=== PATIENT | male | born 1930 | race Caucasian/White ===

== ENCOUNTER 2016-11-04 19:20 | Inpatient (IN) | payer MEDICARE ==
[~2016-11-04] VITALS: Ht 182.9 cm; Wt 90.3 kg
--- OUTSIDE RECORDS SUMMARY | 2016-11-04 19:25 | XMS REPORT | Summary of Care ---
Author Author Risa Hill M.D. Organization Unknown Address [address] [place] [address], [place] [id number] Phone Unavailable Care Team Providers Care Solderer Name Role Phone Risa Hill M.D. 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 Refills: 0 Risa Hill M.D. Started 02-Aug-2009 ActiveDiltiazem HCl ER 120 MG Oral Capsule Extended Release 12 Hour Take one capsule daily Refills: 0 Risa Hill M.D. Started ActiveFinasteride 5 MG Oral Tablet Take 1 tablet daily Quantity: 90 Refills: 3 Risa Hill M.D. Started ActiveEliquis 5 MG Oral Tablet Take twice daily Refills: 0 Started 21-Aug-2015 Active Allergies and Adverse Reactions Name Dates Details Penicillins Status: Active Past Medical History Name Dates Details History of skin cancer (V10.83, Z85.828) Status: Resolved Procedures Procedure Dates Details History of Total Knee Replacement Left History of Total Knee Replacement Right History of Coronary Angiography Without Concomitant Left Heart Catheterization Procedures not documented Immunization Name Dates Details Immunizations not documented Family History Unknown Family Member Name Dates Details No pertinent family history Comments: Unknown Status: Active Mother Name Dates Details No pertinent family history Status: Active Social History Name Dates Details Smoking StatusUnknown if ever smoked Vital Signs Date Test Result Details 21-Aug-2015 09:43 BP Systolic 142 mm[Hg] Status: BP Diastolic 84 mm[Hg] Status: Weight 207.4 lb Status: O2 SAT 95 % Status: Body Mass Index Calculated 29.34 kg/m2 Status: Body Surface Area Calculated 2.13 m2 Status: Results Date Description Value Details Results not documented Plan of Care Planned Observations Name Dates Details Planned Goals not documented Goal Planned Encounters Appointment; Provider: Mason Sorenson On 11:00 Appointment; Provider: Eliazar Santacruz On 24-Jul-2014 11:15 Instructions Instructions not documented Encounters Appointment; Risa Hill Encounter Diagnosis: Problem not documented On 21-Aug-2015 09:45 Appointment; Mason Sorenson Encounter Diagnosis: Problem not documented On 29-Mar-2015 10:00 Appointment; Mason Sorenson Encounter Diagnosis: Problem not documented On 19-Oct-2014 14:45 Appointment; Risa Hill Encounter Diagnosis: Problem not documented On 22-Aug-2014 09:45 Appointment; Mason Sorenson Encounter Diagnosis: Problem not documented On 06-Apr-2014 11:00 Appointment; Risa Hill Encounter Diagnosis: Problem not documented On 10:30 Appointment; Risa Hill Encounter Diagnosis: Problem not documented On 13:30 Appointment; Mason Sorenson Encounter Diagnosis: Problem not documented On 29-Sep-2013 11:00
[2016-11-04] MEDS ORDERED: NS IV 500 ML 500 ML IV SCH (19:40)
[2016-11-04] MEDS ORDERED: SODIUM CHLORIDE FLUSH 10 ML SYR IV PRN (19:40)
[2016-11-04] MEDS ORDERED: ACETAMINOPHEN 500 MG TAB (TYLENOL) PO ONE (19:40)
[2016-11-04 19:55] LABS: MEAN CORPUSCULAR HEMOGLOBIN 31.3 PG (26.0-34.0); MEAN CORPUSCULAR HGB CONC 34.6 g/dL (31.0-37.0); MEAN CORPUSCULAR VOLUME 91 FL (80-100); MEAN PLATELET VOLUME 10.5 FL (6.0-9.5); PLATELET COUNT 183 10^3uL (150-450); WHITE BLOOD COUNT 15.87 10^3uL (4.0-11.0)
[2016-11-04 20:11] LABS: ANION GAP 14.2 MEQ/L (3-15)
[2016-11-04 20:12] LABS: ALBUMIN 3.7 g/dL (3.4-5.0); CALCULATED IONIZED CALCIUM 3.9 mg/dL (3.8-4.6); TOTAL PROTEIN 6.7 g/dL (6.4-8.5)
[2016-11-04 20:17] LABS: BAND NEUTROPHILS % 16 % (0-6); EOSINOPHILS % 0 % (0-4); LYMPHOCYTES # 0.6 #; MONOCYTES # 0.9 #; MONOCYTES % 6 % (3-11); RBC MORPH NORMAL (NORMAL); SEGMENTED NEUTROPHILS % 74 % (51-67); TOTAL CELLS COUNTED 100
[2016-11-04 20:28] LABS: CLARITY,URINE Cloudy; GLUCOSE, URINE (UA) Negative (Negative); LEUKOCYTE ESTERASE ,URINE Negative (Negative); PH,URINE 5.5 (5.0 - 8.0); UROBILINOGEN,URINE 0.2 mg/dL (0.2-1.0)
[2016-11-04 20:47] LABS: BILIRUBIN,URINE 1+ (Negative); COLOR,URINE Dark Yellow
[2016-11-04 20:48] LABS: URINE CENTRIFUGED VOLUME 12 mL
--- NOTE | 2016-11-04 21:30 | NUR ---
Pt resting in bed. Awaiting blood results and x-ray results. Denies needs or c/o at this time.
[2016-11-04] MEDS ORDERED: MAG HYDROX/AL HYDROX/SIMETH 200-200-20/5 ML (MAG-AL PLUS) 30 ML UDC PO PRN (23:10)
[2016-11-04] MEDS ORDERED: ONDANSETRON 2 MG/ML (Z0FRAN) 2 ML VIAL IV PRN (23:10)
[2016-11-04] MEDS ORDERED: ACETAMINOPHEN 325 MG TAB (TYLENOL) PO PRN (23:10)
--- NOTE | 2016-11-04 23:45 | NUR ---
Pt. arrives via cart accompanied by DIMENSION MILL WORKER to the Med Surg floor; room 308. Pt. is alert & is cooperative with ambulating to weigh chair then to bed; full assist x 2 required as pt. is very weak. Pt. states, "Both knees started hurting yesterday". Yellow gown/socks applied. Pt.'s respirations are currently 28 per minute; audible wheezes noted. Pt. had small bowel movement with transfer from cart to weigh chair; pullups applied. Pt. denies discomfort. Admission process continues.
[2016-11-05] VITALS (11 sets, daily range): BP systolic 106–183; BP diastolic 61–90
--- NOTE | 2016-11-05 00:50 | NUR ---
Dr. Nelson unable to connect via Robo Doc; trouble shooting equipment; Digital Marketing Strategist, Jyoti, here to assist. Pt. is resting quietly; O2 at 2L via NC; respirations at 24 currently; no cough; lying on right side. Will continue to monitor.
--- NOTE | 2016-11-05 01:15 | NUR ---
NS infusing at 75 cc/hr without difficulty; pt. resting on right side; pillows placed for comfort. Call light and H2O within reach.
[2016-11-05] MEDS ORDERED: SODIUM CHLORIDE FLUSH 10 ML SYR IV PRN (01:20)
--- NOTE | 2016-11-05 01:55 | NUR ---
IT welding equipment sales representative remedied problem with Robo Doc: Dr. Johnson able to interview/assess pt.
[2016-11-05] MEDS ORDERED: DEXTROMETHORPHAN PO ONE (02:05)
[2016-11-05] MEDS ORDERED: GUAIFENESIN PO ONE (02:05)
--- NOTE | 2016-11-05 02:14 | History and Physical (E) ---
History & Physical PCP: John Black MD CC: Cough, weakness HPI: 86 yo gentleman who started feeling weak, congested, having hallucinations and having a dry cough with mild fevers of 99 degress for the past 2 days. He fell at home yesterday and was unable to stand due to his profound weakness. He states he had to crawl around most of the day today until he could call 911. PMH: A- fib, spinal stenosis, PSH: none ALLERGIES: Please see list at end of report. HOME MEDICATIONS: Please see list at end of report. FH: Noncontributory due to advanced age SH: chews tobacco X 60 years, no ETOH, lives alone in a house, ROS: all 10 systems were reviewed except what is listed in the HPI. OBJECTIVE GEN: Awake, alert, oriented, very hard of hearing CV: RRR S1 S2 normal with no murmur LUNGS: CTA B ABD: Soft, normal bowel sounds. INTEG: No rash. NEURO: No focal motor neuro deficit. Weight: 91.4 kg LABS: reviewed, WBC=15.7, Na - 13 ASSESSMENT: 1) Bronchitis 2) Weakness 3) Atrial Fibrillation 4) Spinal stenosis PLAN CXR was clear and vitals stable without fevers, He appears in stable medical condition, will start with gentle IVFluids, regular diet, PT.OT consulted since pt might need placement, no cough or pain while on the floor, restart home meds. Allergies/Home Medications Allergies: Coded Allergies: Penicillins (Verified Allergy, Intermediate, 11/04/16) Copies to: End of Report . YOHANNES KEMP MD Nov 05, 2016 02:14
[2016-11-05] MEDS ORDERED: guaiFENesin ER 600 MG (MUCINEX) TAB PO ONE (02:18)
[2016-11-05] MEDS ORDERED: APIX2.5T2 PO (03:36)
[2016-11-05] MEDS ORDERED: FNST5T PO (03:36)
[2016-11-05] MEDS ORDERED: LSNP10T PO (03:36)
[2016-11-05] MEDS ORDERED: DILT300C49 PO (03:36)
--- NOTE | 2016-11-05 04:00 | NUR ---
Pt. resting quietly; O2 at 2L via NC; IVF infusing without difficulty; appears to be in no distress. Bed alarm on for safety.
[2016-11-05 06:30] LABS: BASOPHILS % (AUTO) 0 % (0-2); EOSINOPHILS % (AUTO) 0 % (0-4); LYMPHOCYTES # (AUTO) 0.7 X10^3; MEAN CORPUSCULAR HGB CONC 34.2 g/dL (31.0-37.0); MEAN CORPUSCULAR VOLUME 92 FL (80-100); MEAN PLATELET VOLUME 10.9 FL (6.0-9.5); MONOCYTES # (AUTO) 1.4 X10^3; MONOCYTES % (AUTO) 13 % (3-11); NEUTROPHILS # (AUTO) 8.4 X10^3; NEUTROPHILS % (AUTO) 79 % (51-67); PLATELET COUNT 157 10^3uL (150-450); WHITE BLOOD COUNT 10.62 10^3uL (4.0-11.0)
--- NOTE | 2016-11-05 06:30 | NUR ---
One time dose of Mucinex not given yet as pt. was resting in a long interval; no coughing noted.
[2016-11-05 06:36] LABS: ANION GAP 11.8 MEQ/L (3-15)
[2016-11-05 06:37] LABS: MEAN CORPUSCULAR HEMOGLOBIN 31.4 PG (26.0-34.0)
[2016-11-05] MEDS ORDERED: MAGNESIUM HYDROXIDE 80MG/ML (MILK OF MAGNESIA) 30 ML UDC PO PRN (07:40)
[2016-11-05] MEDS ORDERED: DOCUSATE SODIUM 100 MG (COLACE) CAP PO PRN (07:40)
[2016-11-05] MEDS ORDERED: POLYETHYLENE GLYCOL 17 GM (MIRALAX) PACKET PO PRN (07:40)
--- NOTE | 2016-11-05 07:54 | Diagnostic Imaging Report ---
Clinical indication: Patient with cough. Exam: Portable chest x-ray upright view. Comparisons: Chest x-ray dated 07/06/2009. Findings: There is stable cardiomegaly with no significant pulmonary vascular congestion. Lungs are clear. There is no pleural effusion or pneumothorax. Bones show no significant acute abnormality as visualized. There is hypertrophic spurring of the right shoulder region. Impression: 1.: Stable cardiomegaly with no significant pulmonary vascular congestion. 2: Otherwise, the remainder of the chest shows no acute process. Dictated by: Dictated on workstation # [id number]
--- NOTE | 2016-11-05 08:59 | NUR ---
NUTRITION ASSESSMENT Level 1 Patient: Nnamdi Chisholm Age/Sex: 86/M Date Screened: 11-05-16 Weight: 201#/91.4 kg Height: 72 inches Primary Diagnosis: bronchitis Diet Order: cardiac Relevant labs: glucose 90 Food allergies: N Nutrition Assessment Criteria Age over 80: 4 points Body Mass Index (BMI) under 19: N Admission Screening Indicates Risk? 3 points Moderate/High Risk Diagnosis: N TPN or PPN: N NPO or clear liquid diet: N Serum Glucose <70 or >180: N Hgb A1c >6.7: N/A Total: 7 points Risk Screen: __ Patient at low nutritional risk based on available data; reevaluate in 5-7 days __ Patient at moderate nutritional risk based on available data; reevaluate in 3-5 days _X_ Patient at high nutritional risk; complete Nutrition Assessment within 48 hours of admission.
[2016-11-05] MEDS ORDERED: ENOXAPARIN 40 MG/0.4 ML (LOVENOX) SYR SC SCH (09:00)
[2016-11-05] MEDS ORDERED: APIXABAN 2.5 MG (ELIQUIS) TABLET PO SCH (09:00)
--- NOTE | 2016-11-05 09:25 | Progress Note (E) ---
Progress Note SUBJECTIVE Admitted after midnight. 86 year old male admitted from ED. Altered mental status, hallucinations, fall at home yesterday. Weakness. [place] fevered at home. On arrival to ED, afebrile and other vitals stable though he was eventually put on 2 L NC. WBC was 15.87. 74% N with 16% bands. CRP was 14.20. UA consistent with dehydration, less so with UTI. Resp PCR panel negative. CXR showed cardiomegaly but not suggestive of pneumonia or failure. Blood culture pending. Was given NS bolus and acetaminophen. No antibiotics were given. Since admit, has remained afebrile. WBC improved to 10.62 and bandemia resolved. Chemistry stable. He provides history. Son is present and provides history as well. Around 9:30 pm 11/03, felt a bit fevered and chilled. Took some acetaminophen and then went bed but got up after 11 pm. Foot slipped on carpet and he slid down to floor. Crawled to bathroom. Vomited twice. Couldn't get to his mobile phone. His daughter usually calls in AM and since he didn't answer phone, she contacted her brother who came in to check on him. Found him on the floor. Was able to help him up. Son stayed with him through the day. Fevered with temp 101 at times. Home health aid arrived at 1:00 pm. Called PCP who advised him to be seen in ED, so EMS was called and he was then brought to ED. Has had some cough but not significant. Some occasional dyspnea. No URI symptoms. No POST. No diarrhea. No dysuria or other urine complaints. No joint or skin changes. OBJECTIVE Vital Signs Date Time Temp Pulse Resp B/P Pulse Ox O2 Delivery O2 Flow Rate FiO2 11/05/16 07:25 98.1 108 20 113/66 94 Nasal cannula 11/05/16 00:16 2.00 GEN: Alert, interactive, oriented. Now in no acute distress. HEENT: EOMI, clear sclerae, mildly dry oral mucosa. CV: Irregular without significant murmur. PULM: CTA B though mildly diminished bases. No R/R/W. ABD: Soft, NT/ND with hyperactive bowel sounds. EXTR: No edema. Warm, dry, well-perfused. INTEG: Mild plethora. Age related changes. No apparent rash. NEURO: No apparent focal motor neuro deficit. No facial asymmetry. Tremor in right arm/hand worse with intention. Chronic. Gait not assessed. Laboratory Results-14 Days 11/04/16 19:35: Absolute Band Neutrophils 2.4, Alanine Aminotransferase (ALT/SGPT) 32, Albumin 3.7, Albumin/Globulin Ratio 1.233, Alkaline Phosphatase 73, Anion Gap 14.2, Aspartate Amino Transf (AST/SGOT) 22, BUN/Creatinine Ratio 26H, Band Neutrophils % 16H, Basophils # (Auto) , Basophils # (Manual) 0.0, Basophils % ( Manual) 0, Basophils (%) (Auto) , Blood Morphology Comment Normal, Blood Urea Nitrogen 28#H, C-Reactive Protein 14.20H, Calcium Level 8.6L, Calcium/Ionized Calcium Ratio 3.9, Calculated Osmolality 264L, Carbon Dioxide Level 25, Chloride Level 98, Creatinine 1.08, Differential Total Cells Counted 100, Eosinophils # 0.0, Eosinophils # (Auto) , Eosinophils % (Manual) 0, Eosinophils (%) (Auto) , Estimat Glomerular Filtration Rate 78.6, Estimated GFR (Non- 65.0, Glucose Level 105, Hematocrit 43.70, Hemoglobin 15.1, Lymphocytes # 0.6, Lymphocytes # (Auto) , Lymphocytes % (Manual) 4L, Lymphocytes (%) (Auto) , Mean Corpuscular Hemoglobin 31.3, Mean Corpuscular Hemoglobin Concent 34.6, Mean Corpuscular Volume 91, Mean Platelet Volume 10.5H , Monocytes # 0.9, Monocytes # (Auto) , Monocytes % (Manual) 6, Monocytes (%) ( Auto) , Neutrophils # 11.7, Neutrophils # (Auto) , Neutrophils (%) (Auto) , Platelet Count 183, Potassium Level 4.4, Red Blood Count 4.83, Red Cell Distribution Width 13.6, Segmented Neutrophils % 74H, Sodium Level 133#L, Total Bilirubin 0.8, Total Protein 6.7, White Blood Count 15.87H 11/04/16 19:50: Urine Bacteria None seen, Urine Bilirubin 1+H, Urine Blood Trace-lysedH, Urine Clarity Cloudy, Urine Collection Type Clean catch, Urine Color Dark yellow, Urine Glucose (UA) Negative, Urine Hyaline Casts 3+H, Urine Ketones TraceH, Urine Leukocyte Esterase Negative, Urine Microscopic RBC 5-10H, Urine Mucus 3+H , Urine Nitrite Negative, Urine Protein 1+H, Urine Specific [place] 1.025, Urine Squamous Epithelial Cells 0-2, Urine Urobilinogen 0.2, Urine WBC 0-2, Urine pH 5.5, Volume Urine Centrifuged 12 ml 11/04/16 20:15: Adenovirus (PCR) Negative, Bordetella parapertussis DNA (PCR) Negative, Chlamydophila pneumoniae (PCR) Negative, Coronavirus Type 229E (PCR) Negative, Coronavirus Type HKU1 (PCR) Negative, Coronavirus Type NL63 (PCR) Negative, Coronavirus Type OC43 (PCR) Negative, Enterovirus/Rhinovirus (PCR) Negative, Human Metapneumovirus (PCR) Negative, Influenza Type A (H1) (PCR) Negative, Influenza Virus Type B (PCR) Negative, Lactic Acid Level 0.9, Mycoplasma pneumoniae (PCR) Negative, Parainfluenza Type 1 (PCR) Negative, Parainfluenza Type 2 (PCR) Negative, Parainfluenza Type 3 (PCR) Negative, Parainfluenza Type 4 (PCR) Negative, Respiratory Syncytial Virus (PCR) Negative 11/05/16 05:25: Anion Gap 11.8, BUN/Creatinine Ratio 29H, Basophils # (Auto) 0.0, Basophils (%) (Auto) 0, Blood Urea Nitrogen 28H, Calcium Level 8.1L, Carbon Dioxide Level 28, Chloride Level 100, Creatinine 0.95, Eosinophils # (Auto) 0.0, Eosinophils (%) ( Auto) 0, Estimat Glomerular Filtration Rate 91.2, Estimated GFR (Non- 75.4, Glucose Level 90, Hematocrit 40.10, Hemoglobin 13.7, Lymphocytes # (Auto) 0.7, Lymphocytes (%) (Auto) 7L, Mean Corpuscular Hemoglobin 31.4, Mean Corpuscular Hemoglobin Concent 34.2, Mean Corpuscular Volume 92, Mean Platelet Volume 10.9H, Monocytes # (Auto) 1.4, Monocytes (%) (Auto) 13H, Neutrophils # ( Auto) 8.4, Neutrophils (%) (Auto) 79H, Platelet Count 157, Potassium Level 4.3, Red Blood Count 4.37L, Red Cell Distribution Width 13.6, Sodium Level 136, White Blood Count 10.62, Troponin I < 0.012 MICRO 04/27 Blood culture PENDING 11/05 Sputum culture PENDING SAMPLE TELE 11/05 Atrial fibrillation with ventricular ectopy IMAGING 11/04/16 CHEST 1 VIEW, AP/PA ONLY* Clinical indication: Patient with cough. Exam : Portable chest x-ray upright view. Comparisons: Chest x-ray dated 07/06/2009. Findings: There is stable cardiomegaly with no significant pulmonary vascular congestion. Lungs are clear. There is no pleural effusion or pneumothorax. Bones show no significant acute abnormality as visualized. There is hypertrophic spurring of the right shoulder region. Impression: 1.: Stable cardiomegaly with no significant pulmonary vascular congestion. 2: Otherwise, the remainder of the chest shows no acute process. ASSESSMENT Nnamdi Chisholm is a 86 year old male admitted from ED 11/05 with malaise, weakness, falls at home, and dehydration, nausea, and vomiting. He also had fever at home. He was found to have elevated CRP of uncertain cause. Differential includes viral or bacterial infection though source is uncertain based on admission workup. He has a few chronic problems. PLAN * Malaise, Weakness: Uncertain cause. Dehydration noted. Check TSH. * Fever: Uncertain cause. Monitor closely for signs of infection. No definitive source of infection identified as yet. Acetaminophen. * Leukocytosis: WBC 15.87 on admit with 16% bands. Resolved next morning to 10.62 and no bands. No definitive source of infection. Due to nausea/vomiting? Viral? Blood culture pending. Monitor closely for signs of infection. * Elevated CRP: Uncertain cause. Monitor closely for signs of infection. Blood culture pending. Not currently on antibiotic. * Hallucinations: By history taken in ED. Apparently was seeing some cats when in ED. Attributed to fever? Monitor mental status closely. * Cardiomegaly: Check for prior echo. Check NT-pro-BNP. Check EKG. * Dehydration: NS bolus given on admit. Additional liter x 1. I&O, daily weight. * Nausea/Vomiting: Viral illness? Had no diarrhea. Monitor signs/symptoms. Ondansetron, promethazine. * Deconditioning, Falls at Home: PT/OT eval and treat. * F/E/N: Cardiac. IVF as above. Peripheral IV. I&O, daily weight. * Prophylaxis: Apixaban * Dispo: Observation pending utilization review. Expect 2-3 day stay. CHRONIC ISSUES * Atrial fibrillation: Apixaban, diltiazem * BPH: Finasteride * HTN: Lisinopril. YOHANNES CHUA MD Nov 05, 2016 07:47
[2016-11-05] MEDS: DILTIAZEM CD 300 MG PO SCH (09:50)
[2016-11-05] MEDS: FINASTERIDE (PROSCAR) 5 MG TAB PO SCH (09:50)
[2016-11-05] MEDS: lisINopril 10 MG (PRINIVIL) TABLET PO SCH (09:50)
--- NOTE | 2016-11-05 10:14 | NUR ---
Pt is a 2 assist transfer- leans backwards frequently with ambulation. Does not call appropriately for assist- will move patient to a closer room momentarily. Had shower, took AM meds without difficulty with water and crackers.
--- NOTE | 2016-11-05 10:45 | NUR ---
NUTRITION ASSESSMENT Level II Patient: Nnamdi Chisholm Age/Sex: 86/M Date Assessed: 11-05-16 ASSESSMENT Pertinent History: Patient admitted with bronchitis and screened at high nutritional risk secondary to weakness and falls at home in elderly male with concern for inadequate intake. PMHx includes a fib, [place] and spinal stenosis. He is and lives alone at home. According to PCP office, weight has been stable at 201# in December 2015, 205# in 2015, and 203# in September,. Visited with pt. and son re: meals at home. Pt. has Home Health (son couldn't remember the name, its out of [place]) who comes 5 days/week for 4 hours and they help with meal prep among other things. He doesn't like turkey or chicken very much ("got tired of it growing up") but likes roast beef. He denied problems chewing or swallowing, other than large pills which go down better in applesauce. Meds/Nutrition: NS Weight: 201#/91.4 kg Height: 72 inches Body Mass Index (BMI): 27.3 [place] Body Weight : 178#/80.9 kg % IBW: 112% GASTROINTESTINAL Appetite: good, eating 75% Diet Order: cardiac Unintentional loss of >10 lbs. in 3 months: N Difficult to chew/swallow: N Diabetes: N Relevant Labs: glucose 90 Calculations for Nutritional Assessment Estimated calorie needs: 22-25 kcals/kg = 2,000-2,275 kcals Estimated protein needs: 1.0-1.3 g/kg = 91-118 g./day DIAGNOSIS 1. Nutrition Diagnosis: Potential for inadequate intake related to illness and weakness as evidenced by reports of weakness at home and falls in elderly man living alone. NUTRITIONAL INTERVENTION Goal: Patient will receive adequate nutrition to meet his needs. Plan: Will provide cardiac diet as ordered and monitor intake for adequacy. MONITORING & EVALUATION _X_ Monitor patients menu selections _X_ Monitor patients food intake per nursing notes __ Monitor NPO/clear liquid days __ Monitor lab values __ Monitor I&O __ Other
[2016-11-05] MEDS ORDERED: PROMETHAZINE HCL INJ 12.5 MG in SODIUM CHLORIDE 25 ML IV PRN (11:10)
[2016-11-05] MEDS ORDERED: NS FLUSH 3 ML PRN IV (11:35)
--- NOTE | 2016-11-05 13:00 | Physical Therapy Evaluation(E) ---
Plan of Care STG: Plan-Treatment Functional: Amb Safe w/ AD on level STG Time Frame: 3 Days Goals Discussed/Agreed: Yes Plan: Balance, Endurance, Gait & Transfer Training, Neuro Re-Education, Progressive Ambulation, Transfer Training, Therapy Excercise Discharge Recommendations: TCU/Skilled NH (Patient would benefit from additional therapy services either via home health or [facility] facility. ) Aware of Dx and Prognosis: Yes Aware of Risk & Benefit: Yes To be Seen: Daily Wednesday-Wednesday Initial Evaluation Service Date/Time 11/05/16, 12:54 Primary Diagnosis: (1) Bronchitis ICD Code: J40 Treatment Diagnosis: (1) Bronchitis ICD Code: J40 Onset Date: 11/05/2016 Start of Care Date: Nov 05, 2016 Resuscitation Status: Do Not Resuscitate Precaution/Isolation: Standard Precautions Fall Level: High Risk 51 or greater Initial Assessment Reason for Rehab: Increase Mobility, Increase Strength, Increase Balance, Increase AROM, Increase Transfers, Increase Endurance Medical History: Other (A fib, spinal stenosis, HTN. ) Pain Location/Comment No pain reported. Prior Level of Function The patient lives alone in a house with no steps to enter. Has a person from [employer] working 4 hours 5 days/week to assist him with laundry, bathing, and cooking. He ambulates with cane outside of home, and uses furniture for balance when in his home. Walk in and tub shower, but most frequently uses the walk in shower with assistance. Rehabilitation Potential: Fair Comment Due to independent prior level of function, and good family support. Assistive Device: FWW Distance Walked in Feet 8 feet x 2 Assist: Min Assist/Contact Guard Gait Description: Decreased Sandra, Slow Gait Limitations: Fatigue ROM/Strength Hip Mobility: Right Hip Strength: 4 Left Hip Strength: 4 Knee Flexion Mobility: Right Knee Flexion Strength: 4 Left Knee Flexion Strength: 4 Knee Extension Mobility: Right Knee Extension Strength: 4+ Left Knee Extension Strength: 4+ Ankle Mobility: Right Ankle Strength: 4+ Left Ankle Strength: 4+ Assessment/Goals Initial Transfer Assessment Rolling: Supervision or setup Sit-Supine: Contact Guard Assist Sitting Edge of Bed: Supervision or setup Supine-Sit: Contact Guard Assist Sit-Stand from Bed: Minimal Assistance Stand-Sit: Minimal Assistance Ambulation: Contact Guard Assist Distance Walked in Feet 8 feet x 2 with FWW. Comment Patient does have poor awareness of obstacles, and requires verbal cues for allowing PT and aide to move 02 tubing and IV tube. Transfer Short Term Goals Rolling: Supervision or setup Sit-Supine: Supervision or setup Sitting Edge of Bed: Contact Guard Assist Supine-Sit: Supervision or setup Sit-Stand from bed: Supervision or setup Stand-Sit: Supervision or setup Ambulation: Supervision or setup Distance to Walk in Feet A minimum of 100 feet with FWW, 25 feet without AD. Treatments Ambulation Toilet transfer with FWW, IV pole, and 2L 02 . Patient requires verbal cues for safety. He stands with CGA for toileting hygiene no complaints of dizziness/ weakness. Coding Time In: 0820 Time Out: 0858 Total Minutes: 38 Charges: 99753 Eval< 20 min, 31972 Ther Activity REAGAN SUERO PT Nov 05, 2016 13:00
--- NOTE | 2016-11-05 13:42 | NUR ---
MED REC COMPLETE--current med list obtained from patient report (written list), external med history application, and patient interview conducted by Chase Gutierrez, Pharm. D. Candidate 2017.
--- NOTE | 2016-11-05 15:21 | NUR ---
patient ambulates to bathroom and in halls with 1 assist this afternoon. Remains on 2L nc.
--- NOTE | 2016-11-05 15:24 | PT Daily Note Inpatient (E) ---
PT Daily Treatment Service Date/Time 11/05/16, 15:19 Medical Diagnosis: (1) Bronchitis ICD Code: J40 Physical Therapy: (1) Bronchitis ICD Code: J40 Precaution/Isolation: Standard Precautions Resuscitation Status: Do Not Resuscitate Fall Level: High Risk 51 or greater Subjective pt in bed, agrees to therapy, no c/o pain Pain Level: 0 Oxygen Delivery: Nasal cannula O2 liters/minute: 2 Treatments Sit, Stand, Supine: Supine Extremity: Both Lower Extremity Assistance: AROM Repetition: 1 x 15 Exercise: AP, Heel Slides, Hip Abduction, SLR, SAQ Transfers Supine-Sit: Supervision or setup Sit-Stand from bed: Contact Guard Assist Stand-Sit: Contact Guard Assist (lets himself fall into bed, safety education on proper stand to sit provided) Gait Ambulation: Contact Guard Assist Distance Walked: 10', 240' hallucinations with walking, "I wanna go see the rain", at end of [place] pt stops and states "I don't want to get my feet wet", reoriented patient Weight Bearing Status: Full Assistive Device: FWW Gait Assist: Min Assist/Contact Guard Gait Description: Normal:No Sig. Deviation, Flexed Trunk Gait Training: Limitations: Fatigue Education/Plan Assessment stand to sit unsafe, gait with no LOB, hallucinations during gait, easily reoriented Safety Awareness: Impaired Response to Treatment: Improving Plan Cont POC Patient will be seen: Daily Discharge Recommendations: 24 hour Caregiver support Coding Time In: 1440 Time Out: 1515 Total Minutes: 35 Charges: 47258 Exercise Therp KAMILLE Santiago DUCTFIXING PLUMBER Nov 05, 2016 15:24
[2016-11-05] MEDS: APIXABAN 2.5 MG (ELIQUIS) TABLET PO SCH (20:18)
--- NOTE | 2016-11-05 20:23 | NUR ---
In bed watching TV. Voices no complaints. Denies productive cough at this time and states when he lays slightly reclined he does not cough. Lungs clear to auscultation. Denies pain; denies needs.
[2016-11-06] VITALS (9 sets, daily range): BP systolic 116–183; BP diastolic 57–90
[2016-11-06 06:19] LABS: MEAN CORPUSCULAR HEMOGLOBIN 31.1 PG (26.0-34.0); MEAN CORPUSCULAR VOLUME 91 FL (80-100); MEAN PLATELET VOLUME 10.6 FL (6.0-9.5); PLATELET COUNT 172 10^3uL (150-450); WHITE BLOOD COUNT 7.63 10^3uL (4.0-11.0)
--- NOTE | 2016-11-06 06:28 | NUR ---
Patient rests in bed without needs throughout night. This AM, up with walker, walks with steady gait to sink to wash face. States to staff "Don't you see all those ants on the floor? You're standing right on them!" No ants or insects noted on floor. Patient reoriented. No needs at this time.
[2016-11-06 06:32] LABS: ALBUMIN 3.2 g/dL (3.4-5.0); ANION GAP 12.5 MEQ/L (3-15)
[2016-11-06 07:03] LABS: BAND NEUTROPHILS % 0 % (0-6); EOSINOPHILS % 1 % (0-4); LYMPHOCYTES # 1.1 #; MONOCYTES # 0.9 #; MONOCYTES % 13 % (3-11); SEGMENTED NEUTROPHILS % 71 % (51-67); TOTAL CELLS COUNTED 100
[2016-11-06 07:05] LABS: RBC MORPH NORMAL (NORMAL)
[2016-11-06] MEDS: DILTIAZEM CD 300 MG PO SCH (08:33)
[2016-11-06] MEDS: APIXABAN 2.5 MG (ELIQUIS) TABLET PO SCH ×2 (08:33→20:17)
[2016-11-06] MEDS: FINASTERIDE (PROSCAR) 5 MG TAB PO SCH (08:33)
[2016-11-06] MEDS: NS FLUSH 3 ML DAILY IV SCH (08:33)
[2016-11-06] MEDS: lisINopril 10 MG (PRINIVIL) TABLET PO SCH (08:33)
--- NOTE | 2016-11-06 08:41 | NUR ---
Pt sitting in chair at bedside, awake & alert to person, place at this time. Unable to state year. Denies pain or dyspnea. Oxygen at 2l/nc. Lungs clear, no wheezing heard. Abdomen soft, non-tender. Takes AM meds w/o difficulty. Monitor reveals A Fib with PVC, rate 111. Call light in reach. Tabs alarm placed for pt safety due to confusion. Will monitor closely.
--- NOTE | 2016-11-06 10:00 | NUR ---
Family here to see pt, requests to talk to regarding patient and concerns. Informed of family request.
--- NOTE | 2016-11-06 11:46 | Progress Note (E) ---
Progress Note SUBJECTIVE Overnight, calm, pleasant, and interactive, but was hallucinating ants on the floor. Remains in afib with HR stable. Remains on 2 L oxygen. Afebrile. WBC normal with no bands. Chemistry stable. Troponin negative. TSH was normal. Blood culture negative. Still no definitive source of infection or inflammation identified to account for confusion and hallucinations, elevated CRP. Two sons are present this AM and state that he normally has no trouble tracking or being oriented and they have not known him to have hallucinations like this before. No chemical exposures. No trauma. Thinking about NPH, he has new hallucinations but has not had new incontinence and although weak this admit, was just now able to ambulate with PT and sons feel his gait was normal. On exam, alert and interactive. Not currently hallucinating. A bit disoriented to situation... asked about the ants, he says that was last night when he was over at another house... but he was here. Recalls prior president but not current. Unable to spell "WORLD" backwards nor count back from 100 by 7's. OBJECTIVE Vital Signs Date Time Temp Pulse Resp B/P Pulse Ox O2 Delivery O2 Flow Rate FiO2 11/06/16 08:39 111 11/06/16 08:39 96.8 20 96 Nasal cannula 11/06/16 07:20 142/90 11/05/16 16:57 2.00 I & O 11/05/16 11/06/16 Cumulative From/Thru 19:00 07:00 11/04/16 19:25 - 11/06/16 06:06 Intake Total 1011 ml 1487 ml 3237 ml Output Total 700 ml 2150 ml 3000 ml Balance 311 ml -663 ml 237 ml GEN: Alert, interactive, pleasant, but mildly disoriented. HEENT: EOMI, clear sclerae, mildly dry oral mucosa. CV: Irregular without significant murmur. PULM: CTA B though mildly diminished bases. No R/R/W. ABD: Soft, NT/ND with hyperactive bowel sounds. EXTR: No edema. Warm, dry, well-perfused. INTEG: Mild plethora. Age related changes. No apparent rash. NEURO: No apparent focal motor neuro deficit. No facial asymmetry. Tremor in right arm/hand worse with intention. Chronic. Gait reportedly stable with PT, used walker. Lab-Past 14 Days, 35 Results 11/04/16 19:35: Absolute Band Neutrophils 2.4, Alanine Aminotransferase (ALT/SGPT) 32, Albumin 3.7, Albumin/Globulin Ratio 1.233, Alkaline Phosphatase 73, Anion Gap 14.2, Aspartate Amino Transf (AST/SGOT) 22, BUN/Creatinine Ratio 26H, Band Neutrophils % 16H, Basophils # (Auto) , Basophils # (Manual) 0.0, Basophils % ( Manual) 0, Basophils (%) (Auto) , Blood Morphology Comment Normal, Blood Urea Nitrogen 28#H, C-Reactive Protein 14.20H, Calcium Level 8.6L, Calcium/Ionized Calcium Ratio 3.9, Calculated Osmolality 264L, Carbon Dioxide Level 25, Chloride Level 98, Creatinine 1.08, Differential Total Cells Counted 100, Eosinophils # 0.0, Eosinophils # (Auto) , Eosinophils % (Manual) 0, Eosinophils (%) (Auto) , Estimat Glomerular Filtration Rate 78.6, Estimated GFR (Non- 65.0, Glucose Level 105, Hematocrit 43.70, Hemoglobin 15.1, Lymphocytes # 0.6, Lymphocytes # (Auto) , Lymphocytes % (Manual) 4L, Lymphocytes (%) (Auto) , Mean Corpuscular Hemoglobin 31.3, Mean Corpuscular Hemoglobin Concent 34.6, Mean Corpuscular Volume 91, Mean Platelet Volume 10.5H , Monocytes # 0.9, Monocytes # (Auto) , Monocytes % (Manual) 6, Monocytes (%) ( Auto) , Neutrophils # 11.7, Neutrophils # (Auto) , Neutrophils (%) (Auto) , Platelet Count 183, Potassium Level 4.4, Red Blood Count 4.83, Red Cell Distribution Width 13.6, Segmented Neutrophils % 74H, Sodium Level 133#L, Total Bilirubin 0.8, Total Protein 6.7, White Blood Count 15.87H 11/04/16 19:50: Urine Bacteria None seen, Urine Bilirubin 1+H, Urine Blood Trace-lysedH, Urine Clarity Cloudy, Urine Collection Type Clean catch, Urine Color Dark yellow, Urine Glucose (UA) Negative, Urine Hyaline Casts 3+H, Urine Ketones TraceH, Urine Leukocyte Esterase Negative, Urine Microscopic RBC 5-10H, Urine Mucus 3+H , Urine Nitrite Negative, Urine Protein 1+H, Urine Specific [place] 1.025, Urine Squamous Epithelial Cells 0-2, Urine Urobilinogen 0.2, Urine WBC 0-2, Urine pH 5.5, Volume Urine Centrifuged 12 ml 11/04/16 20:15: Adenovirus (PCR) Negative, Bordetella parapertussis DNA (PCR) Negative, Chlamydophila pneumoniae (PCR) Negative, Coronavirus Type 229E (PCR) Negative, Coronavirus Type HKU1 (PCR) Negative, Coronavirus Type NL63 (PCR) Negative, Coronavirus Type OC43 (PCR) Negative, Enterovirus/Rhinovirus (PCR) Negative, Human Metapneumovirus (PCR) Negative, Influenza Type A (H1) (PCR) Negative, Influenza Virus Type B (PCR) Negative, Lactic Acid Level 0.9, Mycoplasma pneumoniae (PCR) Negative, Parainfluenza Type 1 (PCR) Negative, Parainfluenza Type 2 (PCR) Negative, Parainfluenza Type 3 (PCR) Negative, Parainfluenza Type 4 (PCR) Negative, Respiratory Syncytial Virus (PCR) Negative 11/05/16 05:25: Anion Gap 11.8, BUN/Creatinine Ratio 29H, Basophils # (Auto) 0.0, Basophils (%) (Auto) 0, Blood Urea Nitrogen 28H, Calcium Level 8.1L, Carbon Dioxide Level 28, Chloride Level 100, Creatinine 0.95, Eosinophils # (Auto) 0.0, Eosinophils (%) ( Auto) 0, Estimat Glomerular Filtration Rate 91.2, Estimated GFR (Non- 75.4, Glucose Level 90, Hematocrit 40.10, Hemoglobin 13.7, Lymphocytes # (Auto) 0.7, Lymphocytes (%) (Auto) 7L, Mean Corpuscular Hemoglobin 31.4, Mean Corpuscular Hemoglobin Concent 34.2, Mean Corpuscular Volume 92, Mean Platelet Volume 10.9H, Monocytes # (Auto) 1.4, Monocytes (%) (Auto) 13H, Neutrophils # ( Auto) 8.4, Neutrophils (%) (Auto) 79H, Platelet Count 157, Potassium Level 4.3, Red Blood Count 4.37L, Red Cell Distribution Width 13.6, Sodium Level 136, White Blood Count 10.62, Magnesium Level 2.1, HQ-Ddx-L-Type Natriuretic Peptide 1980H, Thyroid Stimulating Hormone (TSH) 0.98#, Troponin I < 0.012 11/05/16 11:45: Troponin I < 0.012 11/06/16 05:55: Absolute Band Neutrophils 0.0, Albumin 3.2L, Anion Gap 12.5, Band Neutrophils % 0, Basophils # (Auto) , Basophils # (Manual) 0.0, Basophils % (Manual) 0, Basophils (%) (Auto) , Blood Morphology Comment Normal, Blood Urea Nitrogen 16, Calcium Level 8.2L, Carbon Dioxide Level 27, Chloride Level 103, Creatinine 0.70L, Differential Total Cells Counted 100, Eosinophils # 0.1, Eosinophils # ( Auto) , Eosinophils % (Manual) 1, Eosinophils (%) (Auto) , Estimat Glomerular Filtration Rate 129.7, Estimated GFR (Non- 107.2, Glucose Level 89, Hematocrit 40.60, Hemoglobin 13.8, Lymphocytes # 1.1, Lymphocytes # (Auto) , Lymphocytes % (Manual) 15L, Lymphocytes (%) (Auto) , Mean Corpuscular Hemoglobin 31.1, Mean Corpuscular Hemoglobin Concent 34.0, Mean Corpuscular Volume 91, Mean Platelet Volume 10.6H, Monocytes # 0.9, Monocytes # (Auto) , Monocytes % (Manual) 13H, Monocytes (%) (Auto) , Neutrophils # 5.4, Neutrophils # (Auto) , Neutrophils (%) (Auto) , Phosphorus Level 3.4, Platelet Count 172, Potassium Level 4.4, Red Blood Count 4.44L, Red Cell Distribution Width 13.3, Segmented Neutrophils % 71H, Sodium Level 138, White Blood Count 7.63 MICRO 11/05 Blood culture Negative to date 11/05 Sputum culture PENDING SAMPLE TELE 11/05 Atrial fibrillation with ventricular ectopy IMAGING 11/06/16 MRI: PENDING 11/06/16 ECHO: PENDING 11/04/16 CHEST 1 VIEW, AP/PA ONLY* Clinical indication: Patient with cough. Exam : Portable chest x-ray upright view. Comparisons: Chest x-ray dated 07/06/2009. Findings: There is stable cardiomegaly with no significant pulmonary vascular congestion. Lungs are clear. There is no pleural effusion or pneumothorax. Bones show no significant acute abnormality as visualized. There is hypertrophic spurring of the right shoulder region. Impression: 1.: Stable cardiomegaly with no significant pulmonary vascular congestion. 2: Otherwise, the remainder of the chest shows no acute process. ASSESSMENT Nnamdi Chisholm is a 86 year old male admitted from ED 11/05 with malaise, weakness, falls at home, and dehydration, nausea, and vomiting. He also had fever at home. He was found to have elevated CRP of uncertain cause. He has had mild hallucinations and has had mild disorientation and decline in executive function, gradual over the last two weeks but more so since Differential includes viral or bacterial infection though source is uncertain based on admission workup. PLAN * Encephalopathy: Uncertain etiology but apparently gradual x 2 weeks, worse x 2 days prior to admit. Broad differential. No definitive cause thus far. Check ABG, ammonia. Check MRI brain. Consider LP pending MRI results. * Malaise, Weakness: Uncertain cause. Dehydration noted. TSH normal. PT eval and treat. * Hallucinations: By history taken in ED. Apparently was seeing some cats when in ED. 11/05, saw ants on the floor. Attributed to fever initially but persistent despite fever resolution. Workup as above. * Fever: Noted prior to admit. Afebrile since this admit. Uncertain cause. Monitor closely for signs of infection. No definitive source of infection identified as yet. Acetaminophen. * Leukocytosis: WBC 15.87 on admit with 16% bands. Resolved next morning to 10.62 and no bands. Further improved to 7.63 11/06. No definitive source of infection. Due to nausea/vomiting? Viral? Blood culture pending. Monitor closely for signs of infection. * Elevated CRP: 14.20 on admit. Uncertain cause. Monitor closely for signs of infection. Blood culture negative and WBC normalized. Not currently on antibiotic. * Cardiomegaly: Check for prior echo. Check NT-pro-BNP. Check EKG. * Dehydration: NS bolus given on admit. Additional liter x 1. I&O, daily weight. * Nausea/Vomiting: Viral illness? Had no diarrhea. Monitor signs/symptoms. Ondansetron, promethazine. * Deconditioning, Falls at Home: PT/OT eval and treat. * F/E/N: Cardiac. IVF as above. Peripheral IV. I&O, daily weight. * Prophylaxis: Apixaban * Dispo: Observation pending utilization review. Expect 2-3 day stay. Would benefit from skilled care if available. CHRONIC ISSUES * Atrial fibrillation: Apixaban, diltiazem * BPH: Finasteride * HTN: Lisinopril. YOHANNES CHUA MD Nov 06, 2016 11:46
--- NOTE | 2016-11-06 11:47 | PT Daily Note Inpatient (E) ---
PT Daily Treatment Service Date/Time 11/06/16, 11:41 Medical Diagnosis: (1) Bronchitis ICD Code: J40 Physical Therapy: (1) Bronchitis ICD Code: J40 Precaution/Isolation: Standard Precautions Resuscitation Status: Do Not Resuscitate Fall Level: High Risk 51 or greater Subjective Pt resting in bed. Agrees to therapy with some encouragement. Oxygen Delivery: Nasal cannula O2 liters/minute: 2 Treatments Sit, Stand, Supine: Supine, Sitting Extremity: Both Lower Extremity Assistance: AROM Repetition: 1 x 20 Exercise: AP, Heel Slides, Hip Abduction, SLR, LAQ, Hip Flexion, Bridge Transfers Supine-Sit: Minimal Assistance Sit-Stand from bed: Contact Guard Assist Stand-Sit: Minimal Assistance (cues for safety.) Gait Ambulation: Contact Guard Assist Distance Walked: 250 feet cues for guidance and encouragement to continue walking. Assistive Device: FWW Gait Description: Decreased Sandra, Slow, Short Step Length, Flexed Trunk Gait Training: Limitations: Fatigue Education/Plan Assessment Pt tolerated exercise but requires much encouragement to participate. Plan Patient will be seen: Daily Wednesday-Wednesday Discharge Recommendations: 24 hour Caregiver support Coding Time In: 11:25 Time Out: 11:46 Total Minutes: 21 Charges: 28835 Exercise Therp 15 m (21 minutes) Horacio Miller [employer] CLERK Nov 06, 2016 11:47
[2016-11-06 12:26] LABS: ABG PCO2 46 mmHg (35-45); ABG PH 7.36 (7.35-7.45); ABG PO2 92 mmHg (80-105)
[2016-11-06 12:27] LABS: ABG OXYGEN SATURATION 97 % (95-98); ARTERIAL BLOOD GAS DELIVERY Nasal Cannula
--- NOTE | 2016-11-06 14:32 | NUR ---
Pt moved to room 312 for pt safety due to increased confusion and pt setting off Tab/bed/chair alarms frequently. Moved per bed.
--- NOTE | 2016-11-06 14:48 | NUR ---
Pt moved to nurse station in [facility], provided with newspaper.
--- NOTE | 2016-11-06 16:23 | NUR ---
Right pupil dilated, left pupil pinpoint. Dr. Silver notified, assesses pt immediately and orders STAT head CT. Radiology notified.
--- NOTE | 2016-11-06 16:25 | Progress Note (E) ---
Progress Note Have been waiting for MRI... unable to get MRI today per MRI staff. Throughout afternoon, patient has remained pleasant but more confused. Ambulating spontaneously, speech clear, but remains disoriented. RN just now noticed anisocoria with right pupil dilated and not reactive. He had not received any eye medications or nebulized treatments. STAT CT head without contrast. Close medical monitoring pending that result. YOHANNES CHUA MD Nov 06, 2016 16:25
[2016-11-06] MEDS ORDERED: D5W IV SCH (16:30)
--- NOTE | 2016-11-06 16:39 | NUR ---
Radiology here to take pt down for CT.
--- NOTE | 2016-11-06 16:47 | NUR ---
Son here, Dr. Silver discusses with current status.
--- NOTE | 2016-11-06 17:14 | Diagnostic Imaging Report ---
PROCEDURE: CT head without contrast. TECHNIQUE: Multiple contiguous axial images were obtained through the brain without the use of intravenous contrast. INDICATION: Altered mental status. Anisocoria. COMPARISON: None. FINDINGS: Generalized cerebral and cerebellar parenchymal volume loss. [id number] leukoaraiosis. Low-attenuation changes in the deep white matter of the frontal lobes, right greater than left, have the appearance of chronic infarcts but are age indeterminate. No CT findings convincing for acute infarct. Intracranial vascular and bilateral basal ganglia calcifications. No intracranial hemorrhage, mass effect, hydrocephalus, or extra-axial fluid collections. The visualized paranasal sinuses and mastoids are clear. Right scleral band. The orbits are otherwise unremarkable. Osseous structures are intact. IMPRESSION: 1. 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 However, acute infarction cannot entirely be excluded. 2. No intracranial hemorrhage. 3. Generalized parenchymal volume loss is appropriate for age. [id number] leukoaraiosis. Dictated by: Dictated on workstation # [id number]
--- NOTE | 2016-11-06 17:17 | NUR ---
Pt returns from CT. Son remains in room with pt. Pt remains impulsive and confused.
--- NOTE | 2016-11-06 17:55 | OT Therapy Evaluation (E) ---
POC Plan of Care Problems Identified: Activity Tolerance, Body Awareness, Cognition, Lt UE Strength, Rt UE Strength, Safety Awareness Plan: Evaluation-OT, ADL/Self Care Management, Therapy Exercises, Therapy Activities, Pt/Family/Staff Education Frequency of OT: Five times weekly Duration of OT: Other (5 days ) Therapy to Include: ADL training, Balance with ADLs, Pt/family education, Therapeutic activities, UE strengthing Discharge Recommendations: TCU/Skilled NH Pt would benefit from skilled occupational therapy services to improve independence with self care tasks. Pt. Aware of Dx and Prognosis: No Pt. Aware of Risk & Benefit: No Goals: Discussed with patient, Family unavailable Short Term Goals STG Time Frame: 3 Days Will Dress Upper Extremity: With Setup/SBA Will do Toileting: With Min Assistance Will Perform Funct Transfer: CGA Long-Term Goals LTG Time Frame: 5 Days Will Dress Upper Extremity: Independently Will Dress Lower Extremity: With Min Assistance Will do Tub/Shower Transfer: With Setup/SBA Will Bathe Self: With Min Assistance Will do Toilet Transfers: With Min Assistance Will do Toilieting: With Min Assistance Inital Evaluation/General Service Date/Time 11/06/16, 17:54 Primary Diagnosis: (1) Bronchitis ICD Code: J40 Treatment Diagnosis: (1) Weakness ICD Code: R53.1 Start of Care Date: Nov 05, 2016 Precaution/Isolation: Standard Precautions Fall Level: High Risk 51 or greater Resuscitation Status: Do Not Resuscitate Pertinent Medical History: Other (A fib, spinal stenosis, HTN. ) Pain Level: 0 Oxygen Needed: Room air O2 liters/minute: 2 Rehabilitation Potential: Good Rational for Skilled Treatment: Allow return to home, Assistance with ADLs Living Status Prior to Admit: Alone Prior to onset, pt reports receiving 4 hour daily assistance for self care and IADL tasks. Pt reports receiving assistance with cooking, cleaning, bathing and dressing. Pt reports falls at home. Uses cell phone and land line in case of an emergency. Entry Into Home: Level Entry (Threshold ) Shower and Tub Type: Walk in/curtain-grab bars Assist Devices: Tub Bench Toilet Type: Standard with grab bars Comment Pt reports using a cane for functional mobility. Also has a 4 WW Current Function Assessment Mental Status Patient Orientation: Person, Confused (Pt oriented x 1. Pt unable to orient to time, place or situation. Thought he was in [place]. ) Mental Status: Confused Cognition Attention: Impaired Memory: Impaired Safety/Judgement: Impaired Visual/Perceptual Skills Hearing: Impaired Hand Dominance Hand Dominance: Right ROM/Strength Range of Motion : ROM: Shoulder Limited Strength Comment Bilateral elbow and wrists 4-/5 Neurological Coordination: Moderately impaired Bed Mobility/Transfers Sit to Stand: Minimum assist Chair Transfer: Minimum assist ADLs Hand : Feeding Self: Independent Grooming: Grooming Status: Minimum assist Dressing Dressing: Moderate assist Bathing Shower/Bench Transfer Ability: Moderate assist Toileting Toilet Hygiene: Moderate Assist CPT/G Codes Time In: 7:53 Time Out: 8:09 Total Minutes: 16 (07/27 eval) CPT Codes: 68287 Eval< 20 minutes (07/27 eval) G Codes: G8987 Selfcare Cur Status (CK), G8988 Selfcare Goal Stat (CJ- Use of clinical judgment and Patel Index. Pt scored a 60/100) IRENE WEATHERS OT Nov 06, 2016 17:54
[2016-11-06] MEDS ORDERED: ZIPRASIDONE 20 MG INJ (GEODON) VIAL IM ONE (18:40)
--- NOTE | 2016-11-06 19:00 | NUR ---
Geodon 10mg IM given into left vastus lateralis. Sons remain present. Pt continues to be impulsive and does not follow instructions well.
[2016-11-06 19:31] LABS: VITAMIN B 12 398 pg/mL (213-816)
[2016-11-06] MEDS: HALOPERIDOL 5 MG/ML (HALDOL) 1 ML AMP IV PRN (21:20)
--- NOTE | 2016-11-06 21:20 | NUR ---
Patient remains agitated, continues to try to get out of bed, hallucinating. Haldol given IV per order. Will continue to monitor.
[2016-11-06] MEDS ORDERED: LORazepam 2 MG/ML (ATIVAN) 1 ML VIAL ONE (22:16)
[2016-11-06] MEDS ORDERED: LORazepam 2 MG/ML (ATIVAN) 1 ML VIAL IV ONE (22:30)
--- NOTE | 2016-11-06 22:30 | NUR ---
Patient continues to be agitated. Incontinent at this time. Is insisting that he is "going out the window to his truck" and insists that he is going home. Re-oriented several times, patient resistant to orientation. New order received from Dr. Silver: 1mg Lorazepam x1 IV. Given at this time per order. Will continue to monitor.
[2016-11-07] VITALS: BP 162/96
--- NOTE | 2016-11-07 07:30 | NUR ---
Patient has rested in bed throughout night, turned as needed, but does not rouse easily with staff in the room. Patient opens eyes, curses at staff, and returns to sleep, refuses to get up to get weight. No further needs at this time.
--- NOTE | 2016-11-07 07:35 | NUR ---
Patient sleeping in recliner upon shift assessment. Does arouse to verbal stimuli but then returns to sleep. Vital signs WNL. HR RRR. Lung sounds diminished. TABS, yellow gown, and close monitoring provided for safety.
[2016-11-07 07:58] VITALS: BP 141/94
--- NOTE | 2016-11-07 08:10 | NUR ---
Patient awake and feeding self breakfast. Alert and oriented to self only. Reoriented to place and situation. Denies pain. Will continue to monitor.
[2016-11-07 08:27] VITALS: BP 141/94
[2016-11-07] MEDS: FINASTERIDE (PROSCAR) 5 MG TAB PO SCH (09:41)
[2016-11-07] MEDS: DILTIAZEM CD 300 MG PO SCH (09:41)
[2016-11-07] MEDS: NS FLUSH 3 ML DAILY IV SCH (09:41)
[2016-11-07] MEDS: lisINopril 10 MG (PRINIVIL) TABLET PO SCH (09:41)
[2016-11-07] MEDS: APIXABAN 2.5 MG (ELIQUIS) TABLET PO SCH (09:41)
--- NOTE | 2016-11-07 11:00 | NUR ---
Mark at bedside. Dr. Silver here to see patient. Son and patient sign consent for lumbar puncture. Balta Vega CRNA notified by Melany Goetz RN on order for procedure.
--- NOTE | 2016-11-07 12:30 | Progress Note (E) ---
Progress Note SUBJECTIVE Overnight, became more agitated and restless. Not belligerent but disoriented and frequently attempting to get out of bed. Got ziprasidone. This seemed to help later in the night though he was somnolent with the ziprasidone. CT head reassuring but felt to still need MRI. Requested this for Wednesday since it wasn' t completed as ordered 11/06. On exam today, up to chair and interactive. Feels tired he says but is able to speak clearly and answer questions. Has poor recall of the preceding events. Sons present. Updated all on findings and plan of care. Consent obtained from patient and son for LP. OBJECTIVE Vital Signs Date Time Temp Pulse Resp B/P Pulse Ox O2 Delivery O2 Flow Rate FiO2 11/07/16 08:27 97.4 104 18 92 Room air 11/07/16 07:58 141/94 0.00 I & O 11/06/16 11/07/16 Cumulative From/Thru 19:00 07:00 11/04/16 19:25 - 11/07/16 06:34 Intake Total 474 ml 1000 ml 4711 ml Output Total 600 ml 150 ml 3750 ml Balance -126 ml 850 ml 961 ml GEN: Alert, interactive, pleasant, but tired appearing and he remains disoriented. HEENT: EOMI, clear sclerae, mildly dry oral mucosa. CV: Irregular without significant murmur. PULM: CTA B though mildly diminished bases. No R/R/W. ABD: Soft, NT/ND with hyperactive bowel sounds. EXTR: No edema. Warm, dry, well-perfused. INTEG: Mild plethora. Age related changes. No apparent rash. NEURO: 11/06 NIH stroke score = 0. 11/07: No apparent focal motor neuro deficit. No facial asymmetry. Tremor in right arm/hand worse with intention. Chronic. Disoriented to place, time, situation. Lab-Past 14 Days, 35 Results 11/04/16 19:35: Absolute Band Neutrophils 2.4, Alanine Aminotransferase (ALT/SGPT) 32, Albumin 3.7, Albumin/Globulin Ratio 1.233, Alkaline Phosphatase 73, Anion Gap 14.2, Aspartate Amino Transf (AST/SGOT) 22, BUN/Creatinine Ratio 26H, Band Neutrophils % 16H, Basophils # (Auto) , Basophils # (Manual) 0.0, Basophils % ( Manual) 0, Basophils (%) (Auto) , Blood Morphology Comment Normal, Blood Urea Nitrogen 28#H, C-Reactive Protein 14.20H, Calcium Level 8.6L, Calcium/Ionized Calcium Ratio 3.9, Calculated Osmolality 264L, Carbon Dioxide Level 25, Chloride Level 98, Creatinine 1.08, Differential Total Cells Counted 100, Eosinophils # 0.0, Eosinophils # (Auto) , Eosinophils % (Manual) 0, Eosinophils (%) (Auto) , Estimat Glomerular Filtration Rate 78.6, Estimated GFR (Non- 65.0, Glucose Level 105, Hematocrit 43.70, Hemoglobin 15.1, Lymphocytes # 0.6, Lymphocytes # (Auto) , Lymphocytes % (Manual) 4L, Lymphocytes (%) (Auto) , Mean Corpuscular Hemoglobin 31.3, Mean Corpuscular Hemoglobin Concent 34.6, Mean Corpuscular Volume 91, Mean Platelet Volume 10.5H , Monocytes # 0.9, Monocytes # (Auto) , Monocytes % (Manual) 6, Monocytes (%) ( Auto) , Neutrophils # 11.7, Neutrophils # (Auto) , Neutrophils (%) (Auto) , Platelet Count 183, Potassium Level 4.4, Red Blood Count 4.83, Red Cell Distribution Width 13.6, Segmented Neutrophils % 74H, Sodium Level 133#L, Total Bilirubin 0.8, Total Protein 6.7, White Blood Count 15.87H 11/04/16 19:50: Urine Bacteria None seen, Urine Bilirubin 1+H, Urine Blood Trace-lysedH, Urine Clarity Cloudy, Urine Collection Type Clean catch, Urine Color Dark yellow, Urine Glucose (UA) Negative, Urine Hyaline Casts 3+H, Urine Ketones TraceH, Urine Leukocyte Esterase Negative, Urine Microscopic RBC 5-10H, Urine Mucus 3+H , Urine Nitrite Negative, Urine Protein 1+H, Urine Specific Sutter 1.025, Urine Squamous Epithelial Cells 0-2, Urine Urobilinogen 0.2, Urine WBC 0-2, Urine pH 5.5, Volume Urine Centrifuged 12 ml 11/04/16 20:15: Adenovirus (PCR) Negative, Bordetella parapertussis DNA (PCR) Negative, Chlamydophila pneumoniae (PCR) Negative, Coronavirus Type 229E (PCR) Negative, Coronavirus Type HKU1 (PCR) Negative, Coronavirus Type NL63 (PCR) Negative, Coronavirus Type OC43 (PCR) Negative, Enterovirus/Rhinovirus (PCR) Negative, Human Metapneumovirus (PCR) Negative, Influenza Type A (H1) (PCR) Negative, Influenza Virus Type B (PCR) Negative, Lactic Acid Level 0.9, Mycoplasma pneumoniae (PCR) Negative, Parainfluenza Type 1 (PCR) Negative, Parainfluenza Type 2 (PCR) Negative, Parainfluenza Type 3 (PCR) Negative, Parainfluenza Type 4 (PCR) Negative, Respiratory Syncytial Virus (PCR) Negative 11/05/16 05:25: Anion Gap 11.8, BUN/Creatinine Ratio 29H, Basophils # (Auto) 0.0, Basophils (%) (Auto) 0, Blood Urea Nitrogen 28H, Calcium Level 8.1L, Carbon Dioxide Level 28, Chloride Level 100, Creatinine 0.95, Eosinophils # (Auto) 0.0, Eosinophils (%) ( Auto) 0, Estimat Glomerular Filtration Rate 91.2, Estimated GFR (Non- 75.4, Glucose Level 90, Hematocrit 40.10, Hemoglobin 13.7, Lymphocytes # (Auto) 0.7, Lymphocytes (%) (Auto) 7L, Mean Corpuscular Hemoglobin 31.4, Mean Corpuscular Hemoglobin Concent 34.2, Mean Corpuscular Volume 92, Mean Platelet Volume 10.9H, Monocytes # (Auto) 1.4, Monocytes (%) (Auto) 13H, Neutrophils # ( Auto) 8.4, Neutrophils (%) (Auto) 79H, Platelet Count 157, Potassium Level 4.3, Red Blood Count 4.37L, Red Cell Distribution Width 13.6, Sodium Level 136, White Blood Count 10.62, Magnesium Level 2.1, HE-Gke-A-Type Natriuretic Peptide 1980H, Thyroid Stimulating Hormone (TSH) 0.98#, Troponin I < 0.012 11/05/16 11:45: Troponin I < 0.012 11/06/16 05:55: Absolute Band Neutrophils 0.0, Albumin 3.2L, Anion Gap 12.5, Anti-Nuclear Antibody (Hep-2) [Pending], Band Neutrophils % 0, Basophils # (Auto) , Basophils # (Manual) 0.0, Basophils % (Manual) 0, Basophils (%) (Auto) , Blood Morphology Comment Normal, Blood Urea Nitrogen 16, Calcium Level 8.2L, Carbon Dioxide Level 27, Chloride Level 103, Creatinine 0.70L, Differential Total Cells Counted 100, Eosinophils # 0.1, Eosinophils # (Auto) , Eosinophils % ( Manual) 1, Eosinophils (%) (Auto) , Estimat Glomerular Filtration Rate 129.7, Estimated GFR (Non- 107.2, Glucose Level 89, Hematocrit 40.60, Hemoglobin 13.8, Lymphocytes # 1.1, Lymphocytes # (Auto) , Lymphocytes % (Manual ) 15L, Lymphocytes (%) (Auto) , Mean Corpuscular Hemoglobin 31.1, Mean Corpuscular Hemoglobin Concent 34.0, Mean Corpuscular Volume 91, Mean Platelet Volume 10.6H, Methylmalonic Acid [Pending], Monocytes # 0.9, Monocytes # (Auto) , Monocytes % (Manual) 13H, Monocytes (%) (Auto) , Neutrophils # 5.4, Neutrophils # (Auto) , Neutrophils (%) (Auto) , Phosphorus Level 3.4, Platelet Count 172, Potassium Level 4.4, Red Blood Count 4.44L, Red Cell Distribution Width 13.3, Segmented Neutrophils % 71H, Sodium Level 138, Vitamin B12 Level 398 , White Blood Count 7.63 11/06/16 12:10: Ammonia < 8.7L 11/06/16 12:15: Ricky Test Pos, Arterial Blood Base Excess 0.0, Arterial Blood HCO3 25.6, Arterial Blood Oxygen Saturation 97, Arterial Blood Partial Pressure CO2 46H, Arterial Blood Partial Pressure O2 92, Arterial Blood Total CO2 27.0, Arterial Blood pH 7.36, Blood Gas Liter Flow 2.0, Blood Gas Puncture Site Right radial 11/06/16 12:35: Erythrocyte Sedimentation Rate 13 MICRO 11/05 Blood culture Negative to date EKG 11/06 Atrial fibrillation. No acute ST/T wave changes. TELE 11/05 Atrial fibrillation with ventricular ectopy IMAGING 11/06/16 MRI: PENDING 11/06/16 ECHO: PENDING 11/06/16 CT HEAD WO PROCEDURE: CT head without contrast. TECHNIQUE: Multiple contiguous axial images were obtained through the brain without the use of intravenous contrast. INDICATION: Altered mental status. Anisocoria. COMPARISON : None. FINDINGS: Generalized cerebral and cerebellar parenchymal volume loss. [id number] leukoaraiosis. Low-attenuation changes in the deep white matter of the frontal lobes, right greater than left, have the appearance of chronic infarcts but are age indeterminate. No CT findings convincing for acute infarct. Intracranial vascular and bilateral basal ganglia calcifications. No intracranial hemorrhage, mass effect, hydrocephalus, or extra-axial fluid collections. The visualized paranasal sinuses and mastoids are clear. Right scleral band. The orbits are otherwise unremarkable. Osseous structures are intact. IMPRESSION: 1. 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 However, acute infarction cannot entirely be excluded. 2. No intracranial hemorrhage. 3. Generalized parenchymal volume loss is appropriate for age. [id number] leukoaraiosis. 11/04/16 CHEST 1 VIEW, AP/PA ONLY* Clinical indication: Patient with cough. Exam : Portable chest x-ray upright view. Comparisons: Chest x-ray dated 07/06/2009. Findings: There is stable cardiomegaly with no significant pulmonary vascular congestion. Lungs are clear. There is no pleural effusion or pneumothorax. Bones show no significant acute abnormality as visualized. There is hypertrophic spurring of the right shoulder region. Impression: 1.: Stable cardiomegaly with no significant pulmonary vascular congestion. 2: Otherwise, the remainder of the chest shows no acute process. ASSESSMENT Nnamdi Chisholm is a 86 year old male admitted from ED 11/05 with malaise, weakness, falls at home, and dehydration, nausea, and vomiting. He also had fever at home. He was found to have elevated CRP of uncertain cause. ESR was normal. He has had mild hallucinations and has had mild disorientation and decline in executive function, gradual over the last two weeks but more so since 11/04. Differential includes viral or bacterial infection though source is uncertain based on admission workup. PLAN * Encephalopathy: Uncertain etiology but apparently gradual x 2 weeks, worse x 2 days prior to admit. Broad differential. No definitive cause thus far. ABG, ammonia both reassuring. CT head showed no acute changes. Had ordered MRI 11/06 but not able to get study until . Request RODEO PERFORMER to perform LP 11/07. * Malaise, Weakness: Uncertain cause. Dehydration noted. TSH normal. PT eval and treat. * Hallucinations/Delirium: By history taken in ED. Apparently was seeing some cats when in ED. 04/27, saw ants on the floor. Attributed to fever initially but persistent despite fever resolution. Got worse 11/06 and gave ziprasidone. B12 and methylmalonic acid pending. Workup as above. * Fever: Resolved. Noted prior to admit. Afebrile since this admit. Uncertain cause. Monitor closely for signs of infection. No definitive source of infection identified as yet. Acetaminophen. * Leukocytosis: Resolved. WBC 15.87 on admit with 16% bands. Resolved next morning to 10.62 and no bands. Further improved to 7.63 11/06. No definitive source of infection. Due to nausea/vomiting? Viral? Blood culture pending. Monitor closely for signs of infection. * Elevated CRP: 14.20 on admit. Uncertain cause. Monitor closely for signs of infection. Blood culture negative and WBC normalized. Not currently on antibiotic. * Cardiomegaly: Echo. NT-pro-BNP elevated. EKG showed no acute changes. Daily weight, I&O. Diuresis if signs of heart failure. * Dehydration: NS bolus given on admit. Additional liter x 1. I&O, daily weight. * Nausea/Vomiting: Resolved. Viral illness? Had no diarrhea. Monitor signs/ symptoms. Ondansetron, promethazine. * Deconditioning, Falls at Home: PT/OT eval and treat. * F/E/N: Cardiac. IVF as above. Peripheral IV. I&O, daily weight. * Prophylaxis: Apixaban * Dispo: Observation pending utilization review. Expect 2-3 day stay. Would benefit from skilled care if available. CHRONIC ISSUES * Atrial fibrillation: Apixaban, diltiazem * BPH: Finasteride * HTN: Lisinopril. * Tobacco abuse: Chews tobacco. Nicotine patch. Recovery Specialist cessation. YOHANNES CHUA MD Nov 07, 2016 12:28
[2016-11-07] MEDS ORDERED: ZIPRASIDONE 20 MG INJ (GEODON) VIAL IM PRN (12:45)
[2016-11-07 13:10] LABS: BASOPHILS % (AUTO) 0 % (0-2); EOSINOPHILS # (AUTO) 0.1 10^3uL; EOSINOPHILS % (AUTO) 1 % (0-4); LYMPHOCYTES # (AUTO) 1.2 X10^3; MEAN CORPUSCULAR HGB CONC 34.1 g/dL (31.0-37.0); MEAN CORPUSCULAR VOLUME 93 FL (80-100); MEAN PLATELET VOLUME 10.5 FL (6.0-9.5); MONOCYTES # (AUTO) 1.2 X10^3; MONOCYTES % (AUTO) 15 % (3-11); NEUTROPHILS # (AUTO) 5.6 X10^3; NEUTROPHILS % (AUTO) 69 % (51-67); PLATELET COUNT 194 10^3uL (150-450); WHITE BLOOD COUNT 8.13 10^3uL (4.0-11.0)
[2016-11-07 13:12] LABS: MEAN CORPUSCULAR HEMOGLOBIN 31.6 PG (26.0-34.0)
[2016-11-07] MEDS: NICOTINE 21 MG (NICODERM) PATCH TD SCH (13:21)
[2016-11-07 13:33] LABS: ALBUMIN 3.6 g/dL (3.4-5.0); CALCULATED IONIZED CALCIUM 4.2 mg/dL (3.8-4.6); TOTAL PROTEIN 6.4 g/dL (6.4-8.5)
[2016-11-07 15:46] VITALS: BP 124/70
[2016-11-07 16:05] VITALS: BP 124/70
--- NOTE | 2016-11-07 18:31 | NUR ---
Patient rests in bed throughout afternoon. Remains disoriented to place and situation. Notifies staff when needing to void and remains continent of urine. Feeding self supper at this time. Pleasant and cooperative with cares. TABS and yellow gown intact. will continue to monitor.
[2016-11-08] VITALS (19 sets, daily range): BP systolic 126–156; BP diastolic 75–99
--- NOTE | 2016-11-08 06:49 | NUR ---
Patient rests in bed throughout night without needs. Appears oriented to time and place, and situation. States "they keep telling me that I'm confused but I don't think I am anymore." No needs at this time, reports no pain. No needs at this time.
[2016-11-08] MEDS: NICOTINE 21 MG (NICODERM) PATCH TD SCH (08:25)
[2016-11-08] MEDS: DILTIAZEM CD 300 MG PO SCH (08:25)
[2016-11-08] MEDS: lisINopril 10 MG (PRINIVIL) TABLET PO SCH (08:25)
[2016-11-08] MEDS: NS FLUSH 3 ML DAILY IV SCH (08:25)
[2016-11-08] MEDS: FINASTERIDE (PROSCAR) 5 MG TAB PO SCH (08:25)
[2016-11-08] MEDS ORDERED: D5W IV PRN (11:28)
--- NOTE | 2016-11-08 12:30 | NUR ---
Balta Vega, ENROLLMENT MANAGEMENT DIRECTOR here for lumbar puncture. Patient's daughter at bedside.
--- NOTE | 2016-11-08 13:05 | NUR ---
Lumbar puncture complete. New order received to remain in supine position for 4 hours. Neuro check Q15 minutes X 1 hour- then Q30 minutes X1 hour- then 1 hour X 2 hours. Encourage PO intake. Bedside urinal X 4 hours. Notify for change in mental status. Patient alert and oriented at this time. Denies headache or other distress. Will continue to monitor.
[2016-11-08 13:24] LABS: APPEARANCE,CSF CLEAR; COLOR,CSF COLORLESS; WHITE BLOOD CELL,CSF 0 uL (0-10)
--- NOTE | 2016-11-08 14:42 | Progress Note (E) ---
Progress Note SUBJECTIVE LP performed by [employer] SENATOR. Tolerated well. Opening pressure reassuring at 20 mmH2O. CSF was clear, colorless, no cells, glucose 63, protein 33. PCR pending for HSV , WNV. Vitals stable. Remains on room air. SLUMS score in zone of cognitive decline. Total score was 22. His overall cognition is markedly improved. Updated son, daughter, and patient on currently findings and plan of care. Proceeding with MRI tomorrow and if negative, could go to [facility] for a week or more of rehab. If no definitive etiology... and if this happens again... told family he would be better served at a tertiary care hospital where he can have more advanced consultation and testing. OBJECTIVE Vital Signs Date Time Temp Pulse Resp B/P Pulse Ox O2 Delivery O2 Flow Rate FiO2 11/08/16 08:58 97.2 97 18 93 Room air 11/08/16 07:45 156/90 11/07/16 07:58 0.00 I & O 11/07/16 11/08/16 Cumulative From/Thru 19:00 07:00 11/04/16 19:25 - 11/08/16 05:05 Intake Total 300 ml 800 ml 5811 ml Output Total 100 ml 550 ml 4400 ml Balance 200 ml 250 ml 1411 ml GEN: Alert, interactive, pleasant. Less disoriented than 11/07. HEENT: EOMI, clear sclerae, mildly dry oral mucosa. CV: Irregular without significant murmur. PULM: CTA B though mildly diminished bases. No R/R/W. ABD: Soft, NT/ND with hyperactive bowel sounds. EXTR: No edema. Warm, dry, well-perfused. INTEG: Mild plethora. Age related changes. No apparent rash. NEURO: 11/06 NIH stroke score = 0. 11/07: No apparent focal motor neuro deficit. No facial asymmetry. Tremor in right arm/hand worse with intention. Chronic. Orientation improving. SLUMS = 22 on 11/08. Lab-Past 14 Days, 35 Results 11/04/16 19:35: Absolute Band Neutrophils 2.4, Alanine Aminotransferase (ALT/SGPT) 32, Albumin 3.7, Albumin/Globulin Ratio 1.233, Alkaline Phosphatase 73, Anion Gap 14.2, Aspartate Amino Transf (AST/SGOT) 22, BUN/Creatinine Ratio 26H, Band Neutrophils % 16H, Basophils # (Auto) , Basophils # (Manual) 0.0, Basophils % ( Manual) 0, Basophils (%) (Auto) , Blood Morphology Comment Normal, Blood Urea Nitrogen 28#H, C-Reactive Protein 14.20H, Calcium Level 8.6L, Calcium/Ionized Calcium Ratio 3.9, Calculated Osmolality 264L, Carbon Dioxide Level 25, Chloride Level 98, Creatinine 1.08, Differential Total Cells Counted 100, Eosinophils # 0.0, Eosinophils # (Auto) , Eosinophils % (Manual) 0, Eosinophils (%) (Auto) , Estimat Glomerular Filtration Rate 78.6, Estimated GFR (Non- 65.0, Glucose Level 105, Hematocrit 43.70, Hemoglobin 15.1, Lymphocytes # 0.6, Lymphocytes # (Auto) , Lymphocytes % (Manual) 4L, Lymphocytes (%) (Auto) , Mean Corpuscular Hemoglobin 31.3, Mean Corpuscular Hemoglobin Concent 34.6, Mean Corpuscular Volume 91, Mean Platelet Volume 10.5H , Monocytes # 0.9, Monocytes # (Auto) , Monocytes % (Manual) 6, Monocytes (%) ( Auto) , Neutrophils # 11.7, Neutrophils # (Auto) , Neutrophils (%) (Auto) , Platelet Count 183, Potassium Level 4.4, Red Blood Count 4.83, Red Cell Distribution Width 13.6, Segmented Neutrophils % 74H, Sodium Level 133#L, Total Bilirubin 0.8, Total Protein 6.7, White Blood Count 15.87H 11/04/16 19:50: Urine Bacteria None seen, Urine Bilirubin 1+H, Urine Blood Trace-lysedH, Urine Clarity Cloudy, Urine Collection Type Clean catch, Urine Color Dark yellow, Urine Glucose (UA) Negative, Urine Hyaline Casts 3+H, Urine Ketones TraceH, Urine Leukocyte Esterase Negative, Urine Microscopic RBC 5-10H, Urine Mucus 3+H , Urine Nitrite Negative, Urine Protein 1+H, Urine Specific [place] 1.025, Urine Squamous Epithelial Cells 0-2, Urine Urobilinogen 0.2, Urine WBC 0-2, Urine pH 5.5, Volume Urine Centrifuged 12 ml 11/04/16 20:15: Adenovirus (PCR) Negative, Bordetella parapertussis DNA (PCR) Negative, Chlamydophila pneumoniae (PCR) Negative, Coronavirus Type 229E (PCR) Negative, Coronavirus Type HKU1 (PCR) Negative, Coronavirus Type NL63 (PCR) Negative, Coronavirus Type OC43 (PCR) Negative, Enterovirus/Rhinovirus (PCR) Negative, Human Metapneumovirus (PCR) Negative, Influenza Type A (H1) (PCR) Negative, Influenza Virus Type B (PCR) Negative, Lactic Acid Level 0.9, Mycoplasma pneumoniae (PCR) Negative, Parainfluenza Type 1 (PCR) Negative, Parainfluenza Type 2 (PCR) Negative, Parainfluenza Type 3 (PCR) Negative, Parainfluenza Type 4 (PCR) Negative, Respiratory Syncytial Virus (PCR) Negative 11/05/16 05:25: Anion Gap 11.8, BUN/Creatinine Ratio 29H, Basophils # (Auto) 0.0, Basophils (%) (Auto) 0, Blood Urea Nitrogen 28H, Calcium Level 8.1L, Carbon Dioxide Level 28, Chloride Level 100, Creatinine 0.95, Eosinophils # (Auto) 0.0, Eosinophils (%) ( Auto) 0, Estimat Glomerular Filtration Rate 91.2, Estimated GFR (Non- 75.4, Glucose Level 90, Hematocrit 40.10, Hemoglobin 13.7, Lymphocytes # (Auto) 0.7, Lymphocytes (%) (Auto) 7L, Mean Corpuscular Hemoglobin 31.4, Mean Corpuscular Hemoglobin Concent 34.2, Mean Corpuscular Volume 92, Mean Platelet Volume 10.9H, Monocytes # (Auto) 1.4, Monocytes (%) (Auto) 13H, Neutrophils # ( Auto) 8.4, Neutrophils (%) (Auto) 79H, Platelet Count 157, Potassium Level 4.3, Red Blood Count 4.37L, Red Cell Distribution Width 13.6, Sodium Level 136, White Blood Count 10.62, Magnesium Level 2.1, UJ-Bnj-A-Type Natriuretic Peptide 1980H, Thyroid Stimulating Hormone (TSH) 0.98#, Troponin I < 0.012 11/05/16 11:45: Troponin I < 0.012 11/06/16 05:55: Absolute Band Neutrophils 0.0, Albumin 3.2L, Anion Gap 12.5, Anti-Nuclear Antibody (Hep-2) [Pending], Band Neutrophils % 0, Basophils # (Auto) , Basophils # (Manual) 0.0, Basophils % (Manual) 0, Basophils (%) (Auto) , Blood Morphology Comment Normal, Blood Urea Nitrogen 16, Calcium Level 8.2L, Carbon Dioxide Level 27, Chloride Level 103, Creatinine 0.70L, Differential Total Cells Counted 100, Eosinophils # 0.1, Eosinophils # (Auto) , Eosinophils % ( Manual) 1, Eosinophils (%) (Auto) , Estimat Glomerular Filtration Rate 129.7, Estimated GFR (Non- 107.2, Glucose Level 89, Hematocrit 40.60, Hemoglobin 13.8, Lymphocytes # 1.1, Lymphocytes # (Auto) , Lymphocytes % (Manual ) 15L, Lymphocytes (%) (Auto) , Mean Corpuscular Hemoglobin 31.1, Mean Corpuscular Hemoglobin Concent 34.0, Mean Corpuscular Volume 91, Mean Platelet Volume 10.6H, Methylmalonic Acid [Pending], Monocytes # 0.9, Monocytes # (Auto) , Monocytes % (Manual) 13H, Monocytes (%) (Auto) , Neutrophils # 5.4, Neutrophils # (Auto) , Neutrophils (%) (Auto) , Phosphorus Level 3.4, Platelet Count 172, Potassium Level 4.4, Red Blood Count 4.44L, Red Cell Distribution Width 13.3, Segmented Neutrophils % 71H, Sodium Level 138, Vitamin B12 Level 398 , White Blood Count 7.63 11/06/16 12:10: Ammonia < 8.7L 11/06/16 12:15: Ricky Test Pos, Arterial Blood Base Excess 0.0, Arterial Blood HCO3 25.6, Arterial Blood Oxygen Saturation 97, Arterial Blood Partial Pressure CO2 46H, Arterial Blood Partial Pressure O2 92, Arterial Blood Total CO2 27.0, Arterial Blood pH 7.36, Blood Gas Liter Flow 2.0, Blood Gas Puncture Site Right radial 11/06/16 12:35: Erythrocyte Sedimentation Rate 13 11/07/16 13:00: Alanine Aminotransferase (ALT/SGPT) 32, Albumin 3.6, Albumin/Globulin Ratio 1.285, Alkaline Phosphatase 73, Anion Gap 12.0, Aspartate Amino Transf (AST/SGOT ) 20, BUN/Creatinine Ratio 22H, Basophils # (Auto) 0.0, Basophils (%) (Auto) 0, Blood Urea Nitrogen 17, C-Reactive Protein 3.40H, Calcium Level 8.9, Calcium/ Ionized Calcium Ratio 4.2, Calculated Osmolality 270L, Carbon Dioxide Level 30H , Chloride Level 102, Creatinine 0.76L, Eosinophils # (Auto) 0.1, Eosinophils (% ) (Auto) 1, Estimat Glomerular Filtration Rate 118.0, Estimated GFR (Non- 97.5, Glucose Level 105, Hematocrit 45.50, Hemoglobin 15.5, Lymphocytes # (Auto) 1.2, Lymphocytes (%) (Auto) 14L, Mean Corpuscular Hemoglobin 31.6, Mean Corpuscular Hemoglobin Concent 34.1, Mean Corpuscular Volume 93, Mean Platelet Volume 10.5H, Monocytes # (Auto) 1.2, Monocytes (%) ( Auto) 15H, Neutrophils # (Auto) 5.6, Neutrophils (%) (Auto) 69H, Platelet Count 194, Potassium Level 4.6, Prothromb Time International Ratio 1.2, Prothrombin Time 13.3H, Red Blood Count 4.90, Red Cell Distribution Width 13.2, Sodium Level 139, Total Bilirubin 0.7, Total Protein 6.4, White Blood Count 8.13 11/08/16 13:00: Body Fl Herpes Simplex II DNA (PCR) [Pending], Body Fld Herpes Simplex I DNA ( PCR) [Pending], Body Fluid Source [Pending], CSF Appearance Clear, CSF Color Colorless, CSF Glucose 63, CSF RBC 0, CSF Total Protein 33, CSF Tube Number 3, CSF WBC 0, CSF West Nile Virus IgG Antibody [Pending], CSF West Nile Virus IgM Antibody [Pending], HSV Type Indeterminate (PCR) [Pending] MICRO 11/08 CSF Gram stain PENDING 11/08 CSF Culture PENDING 11/08 CSF HSV PCR PENDING 11/08 CSF WNV PCR PENDING 11/05 Blood culture Negative to date EKG 11/06 Atrial fibrillation. No acute ST/T wave changes. TELE 11/05 Atrial fibrillation with ventricular ectopy IMAGING 11/09/16 MRI: PENDING 11/06/16 ECHO: PENDING 11/06/16 CT HEAD WO PROCEDURE: CT head without contrast. TECHNIQUE: Multiple contiguous axial images were obtained through the brain without the use of intravenous contrast. INDICATION: Altered mental status. Anisocoria. COMPARISON : None. FINDINGS: Generalized cerebral and cerebellar parenchymal volume loss. Lolfkpyy-hv-vsrxfdvu leukoaraiosis. Low-attenuation changes in the deep white matter of the frontal lobes, right greater than left, have the appearance of chronic infarcts but are age indeterminate. No CT findings convincing for acute infarct. Intracranial vascular and bilateral basal ganglia calcifications. No intracranial hemorrhage, mass effect, hydrocephalus, or extra-axial fluid collections. The visualized paranasal sinuses and mastoids are clear. Right scleral band. The orbits are otherwise unremarkable. Osseous structures are intact. IMPRESSION: 1. 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 However, acute infarction cannot entirely be excluded. 2. No intracranial hemorrhage. 3. Generalized parenchymal volume loss is appropriate for age. Bfylojbc-lq-kllckzmf leukoaraiosis. 11/04/16 CHEST 1 VIEW, AP/PA ONLY* Clinical indication: Patient with cough. Exam : Portable chest x-ray upright view. Comparisons: Chest x-ray dated 07/06/2009. Findings: There is stable cardiomegaly with no significant pulmonary vascular congestion. Lungs are clear. There is no pleural effusion or pneumothorax. Bones show no significant acute abnormality as visualized. There is hypertrophic spurring of the right shoulder region. Impression: 1.: Stable cardiomegaly with no significant pulmonary vascular congestion. 2: Otherwise, the remainder of the chest shows no acute process. ASSESSMENT Nnamdi Chisholm is a 86 year old male admitted from ED 11/05 with malaise, weakness, falls at home, and dehydration, nausea, and vomiting. He also had fever at home. He was found to have elevated CRP of uncertain cause. ESR was normal. He has had mild hallucinations and has had mild disorientation and decline in executive function, gradual over the last two weeks but more so since 11/04. Differential includes viral or bacterial infection though source is uncertain based on admission workup. PLAN * Encephalopathy: Improving. Uncertain etiology but apparently gradual x 2 weeks , worse x 2 days prior to admit. Broad differential. No definitive cause thus far. ABG, ammonia both reassuring. CT head showed no acute changes. Had ordered MRI 11/06 but not able to get study until . LP 11/08 reassuring with normal protein, normal glucose, no cells. PCR for HSV and antibody for WNV as well as micro pending. * Malaise, Weakness: Improving. Uncertain cause. Dehydration noted. TSH normal. PT eval and treat. * Hallucinations/Delirium: Apparently was seeing some cats when in ED. 11/05, saw ants on the floor. Attributed to fever initially but persistent despite fever resolution. Got worse 11/06 and gave ziprasidone, haloperidol. B12 and methylmalonic acid pending. Workup as above. * Cognitive decline: Acute, seemingly. Etiology uncertain. Finally starting to improve as of 11/08. Workup as noted. B12 and methylmalonic acid pending. * Fever: Resolved. Noted prior to admit. Afebrile since this admit. Uncertain cause. Monitor closely for signs of infection. No definitive source of infection identified as yet. Acetaminophen. * Leukocytosis: Resolved. WBC 15.87 on admit with 16% bands. Resolved next morning to 10.62 and no bands. Further improved to 7.63 11/06. No definitive source of infection. Due to nausea/vomiting? Viral? Blood culture pending. Monitor closely for signs of infection. * Elevated CRP: Resolving. 14.20 on admit. Improved to 3.40 11/07. Uncertain cause. Monitored closely for signs of infection. Blood culture negative and WBC normalized. Not currently on antibiotic. * Cardiomegaly: NT-pro-BNP elevated. EKG showed no acute changes. Echo pending. Daily weight, I&O. Diuresis if signs of heart failure. * Dehydration: NS bolus given on admit. Additional liter x 1. I&O, daily weight. * Nausea/Vomiting: Resolved. Viral illness? Had no diarrhea. Monitor signs/ symptoms. Ondansetron, promethazine. * Deconditioning, Falls at Home: PT/OT eval and treat. * F/E/N: Cardiac. IVF as above. Peripheral IV. I&O, daily weight. * Prophylaxis: Apixaban * Dispo: Inpatient from admit. Workup for altered mental status ongoing and acute cognitive decline has thus far revealed no definitive etiology. Cognition starting to improve 11/08. Awaiting MRI still. Would benefit from skilled care if available. If MRI negative, consider [facility] for SNF. If mental status changes recur, consider transfer to tertiary care center for expert consultation. CHRONIC ISSUES * Atrial fibrillation: Apixaban, diltiazem * BPH: Finasteride * HTN: Lisinopril. * Tobacco abuse: Chews tobacco. Nicotine patch. Residential Manager cessation. YOHANNES CHUA MD Nov 08, 2016 13:56
--- NOTE | 2016-11-08 18:40 | NUR ---
Patient remains supine until 1700 per order. Neuro checks WNL. Patient denies headache or pain. PRN Colace and MOM provided for c/o constipation with supper. Tolerating meals well independently. Alert and oriented X3 this afternoon. Resting in bed with eyes shut. TABS intact for safety. Call light in reach.
--- NOTE | 2016-11-08 19:30 | NUR ---
Patient awake in bed, alert and oriented. Asking what time his MRI is in the morning, and states that he's asked his son to bring clothes for him in case he can be dismissed to [facility] in AM. No reports of pain at this time. All alarms on. Will continue to monitor.
[2016-11-09] VITALS: BP 118/69
--- NOTE | 2016-11-09 02:35 | NUR ---
Patient wakes up and is confused and agitated. Oriented to self. States that he "Needs to call Zane and go get the varmints and ghazal." Up and walks halls with staff hollering out for "Zane" and looking for "varmints", also trying to call family members on the phone, difficult to reorient to time of the night and place. PRN Haldol given and patient is returned to bed, TABS alarm and bed alarm on. Will continue to monitor.
[2016-11-09] MEDS: HALOPERIDOL 5 MG/ML (HALDOL) 1 ML AMP IV PRN (02:36)
--- NOTE | 2016-11-09 06:38 | NUR ---
Patient has not rested since administration of haldol. Has been sitting at desk in priyanka chair and walking halls with staff, continues to hallucinate. Attempts to pull out IV made several times. Continuing to attempt to orient patient throughout night, but he insists that he has a hair appointment this AM and that he needs to leave for this appointment. No needs at this time.
--- NOTE | 2016-11-09 08:23 | PAIN MANAGEMENT ---
Date of note: 11/08/2016 Procedure: Lumbar puncture The patient was referred to anesthesia for the purpose of lumbar puncture secondary to encephalopathy. It should be noted the patient was on Eliquis of yesterday and consultation with Dr. Silver, and Howard Biggs the consensus was made to proceed 24 hours after continuation of the dose of Eliquis. He is on a subtherapeutic dose of 2.5 mg. Informed consent had been obtained yesterday with family present. Upon arrival today the patient's daughter was at bedside. The procedure was explained and the patient is lucid with verbal permission also given at the bedside. The patient is placed in the left lateral decubitus. Sterile prep and drape was utilized. The skin was localized with 5 mL of 1% lidocaine utilizing a 25-gauge needle. After localization a 25-gauge spinal needle was advanced into the subarachnoid space. Positive CSF. Negative heme and negative paresthesia. Opening pressures were 20. Specimens were obtained x4. Those were labeled and hand delivered to lab. The patient tolerated the procedure well and the needle was removed from his back. A band-aid was placed over the site. He was turned and laid flat on his back. At the bedside, the family was instructed we wanted to keep him flat and encourage fluids. This was also relayed to Dr. Silver. Orders were written by anesthesia. They were then transcribed by Dr. Silver and entered into the computer. The patient tolerated the procedure well. All family's questions were answered.
[2016-11-09 08:39] VITALS: BP 146/81
--- NOTE | 2016-11-09 09:59 | PT Daily Note Inpatient (E) ---
PT Daily Treatment Service Date/Time 11/09/16, 09:53 Medical Diagnosis: (1) Bronchitis ICD Code: J40 Physical Therapy: (1) Bronchitis ICD Code: J40 Precaution/Isolation: Standard Precautions Resuscitation Status: Do Not Resuscitate Fall Level: High Risk 51 or greater Subjective Nsg reports patient has not slept much after receiving Haldol, pt is in priyanka- chair at [facility], pleasantly confused Pain Level: 0 Oxygen Delivery: Room air O2 liters/minute: 0 Transfers Sit-Supine: Moderate Assistance (assist of LEs) Sitting Edge of Bed: Supervision or setup Sit-Stand from bed: Contact Guard Assist Stand-Sit: Contact Guard Assist Gait Ambulation: Contact Guard Assist Distance Walked: 420', 300' pt requires cues for direction as he feels he is in [facility], looking for Zane (his son), easily redirected Assistive Device: FWW Gait Assist: Min Assist/Contact Guard Gait Description: Wide Based Gait (tends to hit base of FWW with feet, cues to step up closer to FWW), Decreased Sandra, Slow Gait Training: Limitations: Fatigue, Decreased Strength, Decreased Balance Education/Plan Assessment Pt is not oriented to place, time, or year, walks well with cues for direction and requires reorientation quite often Safety Awareness: Impaired Response to Treatment: Declining Plan Cont POC Patient will be seen: Daily Wednesday-Wednesday Discharge Recommendations: 24 hour Caregiver support Coding Time In: 928 Time Out: 954 Total Minutes: 26 Charges: 78846 Exercise Therp KAMILLE Santiago ACID EXTRACTOR November 09, 2016 09:59
[2016-11-09] MEDS: PATCH REMOVAL TOP SCH (10:00)
[2016-11-09] MEDS: FINASTERIDE (PROSCAR) 5 MG TAB PO SCH (10:20)
[2016-11-09] MEDS: DILTIAZEM CD 300 MG PO SCH (10:20)
[2016-11-09] MEDS: lisINopril 10 MG (PRINIVIL) TABLET PO SCH (10:20)
[2016-11-09] MEDS: NICOTINE 21 MG (NICODERM) PATCH TD SCH (10:21)
[2016-11-09] MEDS: NS FLUSH 3 ML DAILY IV SCH (10:21)
--- NOTE | 2016-11-09 10:28 | Progress Note (E) ---
Progress Note S: Awake and alert, pleasantly confused at nurses station sitting in chair, talking on the phone- ate breakfast very well, walks with walker with PT, clumsy and needs at least one person to stand by MRI brain- nothing acute, old infarct noted- discussed at lengths with Son. He wishes for him to go to group home at [facility]- will plan for tomorrow O: I & O Past 24 hrs 11/09/16 07:00 Intake Total 1457 ml Output Total 1760 ml Balance -303 ml Intake Oral 1457 ml Output Urine Total 1760 ml Vital Signs Date Time Temp Pulse Resp B/P Pulse Ox O2 Delivery O2 Flow Rate FiO2 11/09/16 08:39 96.7 101 18 146/81 94 Room air 11/08/16 17:40 0.00 GEN: Alert, interactive, pleasant. at times confused HEENT: EOMI, clear sclerae, mildly dry oral mucosa. CV: Irregular without significant murmur. PULM: CTA B though mildly diminished bases. No R/R/W. ABD: Soft, NT/ND with hyperactive bowel sounds. EXTR: No edema. Warm, dry, well-perfused. INTEG: Age related changes. No apparent rash. NEURO: 11/06 NIH stroke score = 0. 11/07: No apparent focal motor neuro deficit. No facial asymmetry. Tremor in right arm/hand worse with intention. Chronic. Orientation improving. SLUMS = 22 on 11/08. Lab-Past 14 Days, 35 Results 11/04/16 19:35: Absolute Band Neutrophils 2.4, Alanine Aminotransferase (ALT/SGPT) 32, Albumin 3.7, Albumin/Globulin Ratio 1.233, Alkaline Phosphatase 73, Anion Gap 14.2, Aspartate Amino Transf (AST/SGOT) 22, BUN/Creatinine Ratio 26H, Band Neutrophils % 16H, Basophils # (Auto) , Basophils # (Manual) 0.0, Basophils % ( Manual) 0, Basophils (%) (Auto) , Blood Morphology Comment Normal, Blood Urea Nitrogen 28#H, C-Reactive Protein 14.20H, Calcium Level 8.6L, Calcium/Ionized Calcium Ratio 3.9, Calculated Osmolality 264L, Carbon Dioxide Level 25, Chloride Level 98, Creatinine 1.08, Differential Total Cells Counted 100, Eosinophils # 0.0, Eosinophils # (Auto) , Eosinophils % (Manual) 0, Eosinophils (%) (Auto) , Estimat Glomerular Filtration Rate 78.6, Estimated GFR (Non- 65.0, Glucose Level 105, Hematocrit 43.70, Hemoglobin 15.1, Lymphocytes # 0.6, Lymphocytes # (Auto) , Lymphocytes % (Manual) 4L, Lymphocytes (%) (Auto) , Mean Corpuscular Hemoglobin 31.3, Mean Corpuscular Hemoglobin Concent 34.6, Mean Corpuscular Volume 91, Mean Platelet Volume 10.5H , Monocytes # 0.9, Monocytes # (Auto) , Monocytes % (Manual) 6, Monocytes (%) ( Auto) , Neutrophils # 11.7, Neutrophils # (Auto) , Neutrophils (%) (Auto) , Platelet Count 183, Potassium Level 4.4, Red Blood Count 4.83, Red Cell Distribution Width 13.6, Segmented Neutrophils % 74H, Sodium Level 133#L, Total Bilirubin 0.8, Total Protein 6.7, White Blood Count 15.87H 11/04/16 19:50: Urine Bacteria None seen, Urine Bilirubin 1+H, Urine Blood Trace-lysedH, Urine Clarity Cloudy, Urine Collection Type Clean catch, Urine Color Dark yellow, Urine Glucose (UA) Negative, Urine Hyaline Casts 3+H, Urine Ketones TraceH, Urine Leukocyte Esterase Negative, Urine Microscopic RBC 5-10H, Urine Mucus 3+H , Urine Nitrite Negative, Urine Protein 1+H, Urine Specific Baker 1.025, Urine Squamous Epithelial Cells 0-2, Urine Urobilinogen 0.2, Urine WBC 0-2, Urine pH 5.5, Volume Urine Centrifuged 12 ml 11/04/16 20:15: Adenovirus (PCR) Negative, Bordetella parapertussis DNA (PCR) Negative, Chlamydophila pneumoniae (PCR) Negative, Coronavirus Type 229E (PCR) Negative, Coronavirus Type HKU1 (PCR) Negative, Coronavirus Type NL63 (PCR) Negative, Coronavirus Type OC43 (PCR) Negative, Enterovirus/Rhinovirus (PCR) Negative, Human Metapneumovirus (PCR) Negative, Influenza Type A (H1) (PCR) Negative, Influenza Virus Type B (PCR) Negative, Lactic Acid Level 0.9, Mycoplasma pneumoniae (PCR) Negative, Parainfluenza Type 1 (PCR) Negative, Parainfluenza Type 2 (PCR) Negative, Parainfluenza Type 3 (PCR) Negative, Parainfluenza Type 4 (PCR) Negative, Respiratory Syncytial Virus (PCR) Negative 11/05/16 05:25: Anion Gap 11.8, BUN/Creatinine Ratio 29H, Basophils # (Auto) 0.0, Basophils (%) (Auto) 0, Blood Urea Nitrogen 28H, Calcium Level 8.1L, Carbon Dioxide Level 28, Chloride Level 100, Creatinine 0.95, Eosinophils # (Auto) 0.0, Eosinophils (%) ( Auto) 0, Estimat Glomerular Filtration Rate 91.2, Estimated GFR (Non- 75.4, Glucose Level 90, Hematocrit 40.10, Hemoglobin 13.7, Lymphocytes # (Auto) 0.7, Lymphocytes (%) (Auto) 7L, Mean Corpuscular Hemoglobin 31.4, Mean Corpuscular Hemoglobin Concent 34.2, Mean Corpuscular Volume 92, Mean Platelet Volume 10.9H, Monocytes # (Auto) 1.4, Monocytes (%) (Auto) 13H, Neutrophils # ( Auto) 8.4, Neutrophils (%) (Auto) 79H, Platelet Count 157, Potassium Level 4.3, Red Blood Count 4.37L, Red Cell Distribution Width 13.6, Sodium Level 136, White Blood Count 10.62, Magnesium Level 2.1, ZR-Hxi-O-Type Natriuretic Peptide 1980H, Thyroid Stimulating Hormone (TSH) 0.98#, Troponin I < 0.012 11/05/16 11:45: Troponin I < 0.012 11/06/16 05:55: Absolute Band Neutrophils 0.0, Albumin 3.2L, Anion Gap 12.5, Anti-Nuclear Antibody (Hep-2) [Pending], Band Neutrophils % 0, Basophils # (Auto) , Basophils # (Manual) 0.0, Basophils % (Manual) 0, Basophils (%) (Auto) , Blood Morphology Comment Normal, Blood Urea Nitrogen 16, Calcium Level 8.2L, Carbon Dioxide Level 27, Chloride Level 103, Creatinine 0.70L, Differential Total Cells Counted 100, Eosinophils # 0.1, Eosinophils # (Auto) , Eosinophils % ( Manual) 1, Eosinophils (%) (Auto) , Estimat Glomerular Filtration Rate 129.7, Estimated GFR (Non- 107.2, Glucose Level 89, Hematocrit 40.60, Hemoglobin 13.8, Lymphocytes # 1.1, Lymphocytes # (Auto) , Lymphocytes % (Manual ) 15L, Lymphocytes (%) (Auto) , Mean Corpuscular Hemoglobin 31.1, Mean Corpuscular Hemoglobin Concent 34.0, Mean Corpuscular Volume 91, Mean Platelet Volume 10.6H, Methylmalonic Acid [Pending], Monocytes # 0.9, Monocytes # (Auto) , Monocytes % (Manual) 13H, Monocytes (%) (Auto) , Neutrophils # 5.4, Neutrophils # (Auto) , Neutrophils (%) (Auto) , Phosphorus Level 3.4, Platelet Count 172, Potassium Level 4.4, Red Blood Count 4.44L, Red Cell Distribution Width 13.3, Segmented Neutrophils % 71H, Sodium Level 138, Vitamin B12 Level 398 , White Blood Count 7.63 11/06/16 12:10: Ammonia < 8.7L 11/06/16 12:15: Ricky Test Pos, Arterial Blood Base Excess 0.0, Arterial Blood HCO3 25.6, Arterial Blood Oxygen Saturation 97, Arterial Blood Partial Pressure CO2 46H, Arterial Blood Partial Pressure O2 92, Arterial Blood Total CO2 27.0, Arterial Blood pH 7.36, Blood Gas Liter Flow 2.0, Blood Gas Puncture Site Right radial 11/06/16 12:35: Erythrocyte Sedimentation Rate 13 11/07/16 13:00: Alanine Aminotransferase (ALT/SGPT) 32, Albumin 3.6, Albumin/Globulin Ratio 1.285, Alkaline Phosphatase 73, Anion Gap 12.0, Aspartate Amino Transf (AST/SGOT ) 20, BUN/Creatinine Ratio 22H, Basophils # (Auto) 0.0, Basophils (%) (Auto) 0, Blood Urea Nitrogen 17, C-Reactive Protein 3.40H, Calcium Level 8.9, Calcium/ Ionized Calcium Ratio 4.2, Calculated Osmolality 270L, Carbon Dioxide Level 30H , Chloride Level 102, Creatinine 0.76L, Eosinophils # (Auto) 0.1, Eosinophils (% ) (Auto) 1, Estimat Glomerular Filtration Rate 118.0, Estimated GFR (Non- 97.5, Glucose Level 105, Hematocrit 45.50, Hemoglobin 15.5, Lymphocytes # (Auto) 1.2, Lymphocytes (%) (Auto) 14L, Mean Corpuscular Hemoglobin 31.6, Mean Corpuscular Hemoglobin Concent 34.1, Mean Corpuscular Volume 93, Mean Platelet Volume 10.5H, Monocytes # (Auto) 1.2, Monocytes (%) ( Auto) 15H, Neutrophils # (Auto) 5.6, Neutrophils (%) (Auto) 69H, Platelet Count 194, Potassium Level 4.6, Prothromb Time International Ratio 1.2, Prothrombin Time 13.3H, Red Blood Count 4.90, Red Cell Distribution Width 13.2, Sodium Level 139, Total Bilirubin 0.7, Total Protein 6.4, White Blood Count 8.13 11/08/16 13:00: Body Fl Herpes Simplex II DNA (PCR) [Pending], Body Fld Herpes Simplex I DNA ( PCR) [Pending], Body Fluid Source [Pending], CSF Appearance Clear, CSF Color Colorless, CSF Glucose 63, CSF RBC 0, CSF Total Protein 33, CSF Tube Number 3, CSF WBC 0, CSF West Nile Virus IgG Antibody [Pending], CSF West Nile Virus IgM Antibody [Pending], HSV Type Indeterminate (PCR) [Pending] Laboratory Results Past 24 Hrs 11/08/16 13:00: Body Fl Herpes Simplex II DNA (PCR) [Pending], Body Fld Herpes Simplex I DNA ( PCR) [Pending], Body Fluid Source [Pending], CSF Appearance Clear, CSF Color Colorless, CSF Glucose 63, CSF RBC 0, CSF Total Protein 33, CSF Tube Number 3, CSF WBC 0, CSF West Nile Virus IgG Antibody [Pending], CSF West Nile Virus IgM Antibody [Pending], HSV Type Indeterminate (PCR) [Pending] MICRO 11/08 CSF Gram stain PENDING 11/08 CSF Culture PENDING 11/08 CSF HSV PCR PENDING 11/08 CSF WNV PCR PENDING 11/05 Blood culture Negative to date EKG 11/06 Atrial fibrillation. No acute ST/T wave changes. TELE 11/05 Atrial fibrillation with ventricular ectopy IMAGING 11/09/16 MRI: PENDING 11/06/16 ECHO: PENDING 11/06/16 CT HEAD WO PROCEDURE: CT head without contrast. TECHNIQUE: Multiple contiguous axial images were obtained through the brain without the use of intravenous contrast. INDICATION: Altered mental status. Anisocoria. COMPARISON : None. FINDINGS: Generalized cerebral and cerebellar parenchymal volume loss. Pyjohrmv-zn-aomanhet leukoaraiosis. Low-attenuation changes in the deep white matter of the frontal lobes, right greater than left, have the appearance of chronic infarcts but are age indeterminate. No CT findings convincing for acute infarct. Intracranial vascular and bilateral basal ganglia calcifications. No intracranial hemorrhage, mass effect, hydrocephalus, or extra-axial fluid collections. The visualized paranasal sinuses and mastoids are clear. Right scleral band. The orbits are otherwise unremarkable. Osseous structures are intact. IMPRESSION: 1. 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 However, acute infarction cannot entirely be excluded. 2. No intracranial hemorrhage. 3. Generalized parenchymal volume loss is appropriate for age. Gvfhllwa-xa-kjzdawxj leukoaraiosis. 11/04/16 CHEST 1 VIEW, AP/PA ONLY* Clinical indication: Patient with cough. Exam : Portable chest x-ray upright view. Comparisons: Chest x-ray dated 07/06/2009. Findings: There is stable cardiomegaly with no significant pulmonary vascular congestion. Lungs are clear. There is no pleural effusion or pneumothorax. Bones show no significant acute abnormality as visualized. There is hypertrophic spurring of the right shoulder region. Impression: 1.: Stable cardiomegaly with no significant pulmonary vascular congestion. 2: Otherwise, the remainder of the chest shows no acute process. ASSESSMENT Nnamdi Chisholm is a 86 year old male admitted from ED 11/05 with malaise, weakness, falls at home, and dehydration, nausea, and vomiting. He also had fever at home. He was found to have elevated CRP of uncertain cause. ESR was normal. He has had mild hallucinations and has had mild disorientation and decline in executive function, gradual over the last two weeks but more so since 11/04. Differential includes viral or bacterial infection though source is uncertain based on admission workup. PLAN * Encephalopathy: Improving. Uncertain etiology but apparently gradual x 2 weeks , worse x 2 days prior to admit. Broad differential. No definitive cause thus far. ABG, ammonia both reassuring. CT head showed no acute changes. Had ordered MRI 11/06 but not able to get study until . LP 11/08 reassuring with normal protein, normal glucose, no cells. PCR for HSV and antibody for WNV as well as micro pending. * Malaise, Weakness: Improving. Uncertain cause. Dehydration noted. TSH normal. PT eval and treat. * Hallucinations/Delirium: Apparently was seeing some cats when in ED. 11/05, saw ants on the floor. Attributed to fever initially but persistent despite fever resolution. Got worse 11/06 and gave ziprasidone, haloperidol. B12 and methylmalonic acid pending. Workup as above. * Cognitive decline: Acute, seemingly. Etiology uncertain. Finally starting to improve as of 11/08. Workup as noted. B12 and methylmalonic acid pending. * Fever: Resolved. Noted prior to admit. Afebrile since this admit. Uncertain cause. Monitor closely for signs of infection. No definitive source of infection identified as yet. Acetaminophen. * Leukocytosis: Resolved. WBC 15.87 on admit with 16% bands. Resolved next morning to 10.62 and no bands. Further improved to 7.63 11/06. No definitive source of infection. Due to nausea/vomiting? Viral? Blood culture pending. Monitor closely for signs of infection. * Elevated CRP: Resolving. 14.20 on admit. Improved to 3.40 11/07. Uncertain cause. Monitored closely for signs of infection. Blood culture negative and WBC normalized. Not currently on antibiotic. * Cardiomegaly: NT-pro-BNP elevated. EKG showed no acute changes. Echo pending. Daily weight, I&O. Diuresis if signs of heart failure. * Dehydration: NS bolus given on admit. Additional liter x 1. I&O, daily weight. * Nausea/Vomiting: Resolved. Viral illness? Had no diarrhea. Monitor signs/ symptoms. Ondansetron, promethazine. * Deconditioning, Falls at Home: PT/OT eval and treat. * F/E/N: Cardiac. IVF as above. Peripheral IV. I&O, daily weight. * Prophylaxis: Apixaban * Dispo: Inpatient from admit. Workup for altered mental status ongoing and acute cognitive decline has thus far revealed no definitive etiology. Cognition starting to improve 11/08. MRI today. Would benefit from skilled care if available. 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 discussed with Son. He wants him to go to [facility] tomorrow. This will be arranged. CHRONIC ISSUES * Atrial fibrillation: Apixaban, diltiazem * BPH: Finasteride * HTN: Lisinopril. * Tobacco abuse: Chews tobacco. Nicotine patch. 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 Pt seen and examined with [employer], agree with above. Pt is improving slowly and MRI with chronic changes. Will plan to d/c to [facility] tomorrow. Neela Anaya APRN November 09, 2016 10:28 Tha Whitman MD November 09, 2016 21:02
--- NOTE | 2016-11-09 11:05 | NUR ---
the patient is down with MRI at this time
--- NOTE | 2016-11-09 12:00 | NUR ---
patient returns from MRI at this time
--- NOTE | 2016-11-09 12:47 | Diagnostic Imaging Report ---
INDICATION: Hallucinations, altered mental status. Study interpreted in correlation with head CT 11/06/2016. No other priors. TECHNIQUE: Multiplanar multisequence pre-and post-IV contrast-enhanced brain MRI is performed. In addition, noncontrast-enhanced MRA head performed. FINDINGS: There are no foci of abnormal diffusion restriction. There were no findings of an acute or subacute ischemic infarct. There are no findings of acute hemorrhage. Senescent cerebrocortical atrophy is a stable chronic finding. Sequelae of an old infarct in the right basal ganglia is a chronic finding. Following IV contrast administration there was no abnormal or suspicious enhancement revealed. No abnormal parenchymal or meningeal enhancement aside from incidental developmental venous anomaly in the right cerebellar hemisphere. No suspicious finding and no suspicious space-occupying lesion. The basilar cisterns are patent. The orbits and paranasal sinuses nonacute. The MRA head reveals normal appearance of the distal vertebrals and the basilar artery. Intracranial ICAs unremarkable. Intracerebral arteries and the bilateral middle cerebral arteries are unremarkable. No aneurysm, branch occlusion, or vascular malformation. IMPRESSION: Old infarct in the right basal ganglia, chronic atrophy, and white matter senescent small-vessel disease. No acute abnormality. No evidence for neoplasm and normal MRA head. Dictated by: Dictated on workstation # [id number]
[2016-11-09] MEDS ORDERED: HALOPERIDOL 5 MG/ML (HALDOL) 1 ML AMP IM PRN (13:30)
[2016-11-09 15:44] VITALS: BP 106/63
--- NOTE | 2016-11-09 15:55 | OT Daily Note Inpatient (E) ---
OT Daily Treatment Service Date/Time 11/09/16, 15:50 Primary Diagnosis: (1) Bronchitis ICD Code: J40 Treatment Diagnosis: (1) Weakness ICD Code: R53.1 Start of Care Date: Nov 05, 2016 Precaution/Isolation: Standard Precautions Fall Level: High Risk 51 or greater Resuscitation Status: Do Not Resuscitate Current Activity: Asleep, diff to arouse, In bed Oxygen Needed: Room air O2 liters/minute: 0 Current Function Assessment Mental Status Patient Orientation: Unable to Assess Mental Status: Lethargic, Unresponsive Cognition Attention: Impaired Memory: Impaired Safety/Judgement: Impaired Visual/Perceptual Skills Hearing: Impaired Hand Dominance Hand Dominance: Right Treatments Gross Motor Skill Exercise U E Gross Motor Skills U E : Coordination Activity: Balloon batting Strengthening Exercise Upper Extremity Strength Exerc : Upper Extremity: Bilateral Exercise Type: PROM Repetitions: 15 min (Unable to awaken pt . PROM performed to decrease contractures) Education/Assessment Treatment Tolerance: Kaya trmnt w/o complaints Rehabilitation Potential: Good POC Plan of Care Problems Identified: Activity Tolerance, Body Awareness, Cognition, Lt UE Strength, Rt UE Strength, Safety Awareness Plan: Evaluation-OT, ADL/Self Care Management, Therapy Exercises, Therapy Activities, Pt/Family/Staff Education Frequency of OT: Five times weekly Duration of OT: Other (5 days ) Therapy to Include: ADL training, Balance with ADLs, Pt/family education, Therapeutic activities, UE strengthing Discharge Recommendations: TCU/Skilled NH Pt. Aware of Dx and Prognosis: No Pt. Aware of Risk & Benefit: No Goals: Discussed with patient, Family unavailable Short Term Goals STG Time Frame: 3 Days Will Dress Upper Extremity: With Setup/SBA Will do Toileting: With Min Assistance Will Perform Funct Transfer: [employer] Goals LTG Time Frame: 5 Days Will Dress Upper Extremity: Independently Will Dress Lower Extremity: With Min Assistance Will do Tub/Shower Transfer: With Setup/SBA Will Bathe Self: With Min Assistance Will do Toilet Transfers: With Min Assistance Will do Toilieting: With Min Assistance CPT/G Codes Time In: 1541 Time Out: 1556 Total Minutes: 15 CPT Codes: 04424 Exercise Ther Inna Willoughby November 09, 2016 15:55
--- NOTE | 2016-11-09 16:08 | NUR ---
patient to work with OT at this time
--- NOTE | 2016-11-09 18:40 | NUR ---
Nnamdi is alert and oriented times 3 this shift but struggles with situation and compliance. He frequently requires redirections for safety. He responds poorly and tab alarms placed. VSS and WNL. He ambulates with staff effectively but remains unable to perform ambulation independently. Haldol IM given at approximately 1400 for agitation. Patients son is in the room and Nnamdi is able to rest comfortably in bed. Currently Nnamdi is up in priyanka chair with feet elevated. He remains resistant to care and states "Im gonna go ahead and go home now." Will continue to monitor the patient for safety.
--- NOTE | 2016-11-09 19:04 | NUR ---
Report given to Tran MARSH and care relinquished
[2016-11-09] MEDS: APIXABAN 2.5 MG (ELIQUIS) TABLET PO SCH (20:25)
[2016-11-09 23:19] VITALS: BP 105/63
[2016-11-10 06:07] LABS: MEAN CORPUSCULAR HEMOGLOBIN 31.1 PG (26.0-34.0); MEAN CORPUSCULAR HGB CONC 34.2 g/dL (31.0-37.0); MEAN CORPUSCULAR VOLUME 91 FL (80-100); MEAN PLATELET VOLUME 10.5 FL (6.0-9.5); PLATELET COUNT 217 10^3uL (150-450); WHITE BLOOD COUNT 8.48 10^3uL (4.0-11.0)
[2016-11-10 06:22] LABS: BAND NEUTROPHILS % 0 % (0-6); EOSINOPHILS % 3 % (0-4); LYMPHOCYTES # 1.3 #; MONOCYTES # 0.5 #; MONOCYTES % 6 % (3-11); RBC MORPH NORMAL (NORMAL); SEGMENTED NEUTROPHILS % 76 % (51-67); TOTAL CELLS COUNTED 100
[2016-11-10 06:30] LABS: ANION GAP 10.9 MEQ/L (3-15)
--- NOTE | 2016-11-10 06:42 | NUR ---
Pt has rested well throughout the night. Pt was alert, confused at times, though was able to reorient appropriately. Up to BR with walker. No PRN meds given this shift. Call light in reach.
[2016-11-10 08:15] VITALS: BP 155/88
[2016-11-10] MEDS: lisINopril 10 MG (PRINIVIL) TABLET PO SCH (08:59)
[2016-11-10] MEDS: FINASTERIDE (PROSCAR) 5 MG TAB PO SCH (08:59)
[2016-11-10] MEDS: DILTIAZEM CD 300 MG PO SCH (09:00)
[2016-11-10] MEDS: APIXABAN 2.5 MG (ELIQUIS) TABLET PO SCH (09:00)
[2016-11-10] MEDS: NS FLUSH 3 ML DAILY IV SCH (09:00)
[2016-11-10] MEDS: NICOTINE 21 MG (NICODERM) PATCH TD SCH (09:00)
--- NOTE | 2016-11-10 09:05 | NUR ---
Nutrition Follow Up: Patient is eating 50-90% of cardiac diet, with average intake of 75%. Weight today: 198.6#/90.3 kg--this is down 2.4# in the past 5 days Labs: glucose 100 1. Will continue to provide cardiac diet as ordered; he may benefit from supplemental protein shake on days when his intake is a bit lower. Noted plans to transfer to the [facility]. Will continue to monitor intake for adequacy.
[2016-11-10] MEDS: PATCH REMOVAL TOP SCH (09:06)
--- NOTE | 2016-11-10 11:02 | Discharge Instructions (E) ---
Discharge Instructions Instructions Continue same medications Contact Dr Rutherford for questions or concerns You will go to [facility] for senior living care. Activity Instructions as tolerates , per PT OT Doctor's Appointment appt Dr Rutherford 1 week Discharge Diet: Heart Healthy Neela Cherry APRN November 10, 2016 11:02
--- NOTE | 2016-11-10 11:05 | Discharge Summary (E FT) ---
Discharge Summary (E FT) Admit Date Nov 06, 2016 at 10:50 Discharge Date November 10, 2016 1100 Admitting Provider Eliazar Johnson MD Primary Care Provider John Black MD Attending Provider Eliazar Johnson MD Consulting Provider Balta Vega CRNA Hospital Course Summary HPI: 86 yo gentleman who started feeling weak, congested, having hallucinations and having a dry cough with mild fevers of 99 degrees for the past 2 days. He fell at home yesterday and was unable to stand due to his profound weakness. He states he had to crawl around most of the day today until he could call 911. He had periods of confusion while here in the hospital but has made great improvements by day of discharge. More alert, talkative, dressed and visiting with family in room. Feels well and wants to go to [facility]. Family agrees . Vital Signs Date Time Temp Pulse Resp B/P Pulse Ox O2 Delivery O2 Flow Rate FiO2 11/10/16 08:15 97.9 64 16 155/88 95 Room air 11/08/16 17:40 0.00 GEN: Alert, interactive, pleasant. No confusion seen today- going to [facility] at 1 :30 today HEENT: EOMI, clear sclerae, moist oral mucosa. CV: Irregular without significant murmur. PULM: CTA B though mildly diminished bases. No R/R/W. ABD: Soft, NT/ND with hyperactive bowel sounds. EXTR: No edema. Warm, dry, well-perfused. INTEG: Age related changes. No apparent rash. NEURO: 11/06 NIH stroke score = 0. 11/07: No apparent focal motor neuro deficit. No facial asymmetry. Tremor in right arm/hand worse with intention. Chronic. Orientation improving. SLUMS = 22 on 11/08. Lab-Past 14 Days, 35 Results 11/04/16 19:35: Absolute Band Neutrophils 2.4, Alanine Aminotransferase (ALT/SGPT) 32, Albumin 3.7, Albumin/Globulin Ratio 1.233, Alkaline Phosphatase 73, Anion Gap 14.2, Aspartate Amino Transf (AST/SGOT) 22, BUN/Creatinine Ratio 26H, Band Neutrophils % 16H, Basophils # (Auto) , Basophils # (Manual) 0.0, Basophils % ( Manual) 0, Basophils (%) (Auto) , Blood Morphology Comment Normal, Blood Urea Nitrogen 28#H, C-Reactive Protein 14.20H, Calcium Level 8.6L, Calcium/Ionized Calcium Ratio 3.9, Calculated Osmolality 264L, Carbon Dioxide Level 25, Chloride Level 98, Creatinine 1.08, Differential Total Cells Counted 100, Eosinophils # 0.0, Eosinophils # (Auto) , Eosinophils % (Manual) 0, Eosinophils (%) (Auto) , Estimat Glomerular Filtration Rate 78.6, Estimated GFR (Non- 65.0, Glucose Level 105, Hematocrit 43.70, Hemoglobin 15.1, Lymphocytes # 0.6, Lymphocytes # (Auto) , Lymphocytes % (Manual) 4L, Lymphocytes (%) (Auto) , Mean Corpuscular Hemoglobin 31.3, Mean Corpuscular Hemoglobin Concent 34.6, Mean Corpuscular Volume 91, Mean Platelet Volume 10.5H , Monocytes # 0.9, Monocytes # (Auto) , Monocytes % (Manual) 6, Monocytes (%) ( Auto) , Neutrophils # 11.7, Neutrophils # (Auto) , Neutrophils (%) (Auto) , Platelet Count 183, Potassium Level 4.4, Red Blood Count 4.83, Red Cell Distribution Width 13.6, Segmented Neutrophils % 74H, Sodium Level 133#L, Total Bilirubin 0.8, Total Protein 6.7, White Blood Count 15.87H 11/04/16 19:50: Urine Bacteria None seen, Urine Bilirubin 1+H, Urine Blood Trace-lysedH, Urine Clarity Cloudy, Urine Collection Type Clean catch, Urine Color Dark yellow, Urine Glucose (UA) Negative, Urine Hyaline Casts 3+H, Urine Ketones TraceH, Urine Leukocyte Esterase Negative, Urine Microscopic RBC 5-10H, Urine Mucus 3+H , Urine Nitrite Negative, Urine Protein 1+H, Urine Specific [place] 1.025, Urine Squamous Epithelial Cells 0-2, Urine Urobilinogen 0.2, Urine WBC 0-2, Urine pH 5.5, Volume Urine Centrifuged 12 ml 11/04/16 20:15: Adenovirus (PCR) Negative, Bordetella parapertussis DNA (PCR) Negative, Chlamydophila pneumoniae (PCR) Negative, Coronavirus Type 229E (PCR) Negative, Coronavirus Type HKU1 (PCR) Negative, Coronavirus Type NL63 (PCR) Negative, Coronavirus Type OC43 (PCR) Negative, Enterovirus/Rhinovirus (PCR) Negative, Human Metapneumovirus (PCR) Negative, Influenza Type A (H1) (PCR) Negative, Influenza Virus Type B (PCR) Negative, Lactic Acid Level 0.9, Mycoplasma pneumoniae (PCR) Negative, Parainfluenza Type 1 (PCR) Negative, Parainfluenza Type 2 (PCR) Negative, Parainfluenza Type 3 (PCR) Negative, Parainfluenza Type 4 (PCR) Negative, Respiratory Syncytial Virus (PCR) Negative 11/05/16 05:25: Anion Gap 11.8, BUN/Creatinine Ratio 29H, Basophils # (Auto) 0.0, Basophils (%) (Auto) 0, Blood Urea Nitrogen 28H, Calcium Level 8.1L, Carbon Dioxide Level 28, Chloride Level 100, Creatinine 0.95, Eosinophils # (Auto) 0.0, Eosinophils (%) ( Auto) 0, Estimat Glomerular Filtration Rate 91.2, Estimated GFR (Non- 75.4, Glucose Level 90, Hematocrit 40.10, Hemoglobin 13.7, Lymphocytes # (Auto) 0.7, Lymphocytes (%) (Auto) 7L, Mean Corpuscular Hemoglobin 31.4, Mean Corpuscular Hemoglobin Concent 34.2, Mean Corpuscular Volume 92, Mean Platelet Volume 10.9H, Monocytes # (Auto) 1.4, Monocytes (%) (Auto) 13H, Neutrophils # ( Auto) 8.4, Neutrophils (%) (Auto) 79H, Platelet Count 157, Potassium Level 4.3, Red Blood Count 4.37L, Red Cell Distribution Width 13.6, Sodium Level 136, White Blood Count 10.62, Magnesium Level 2.1, JR-Ofu-D-Type Natriuretic Peptide 1980H, Thyroid Stimulating Hormone (TSH) 0.98#, Troponin I < 0.012 11/05/16 11:45: Troponin I < 0.012 11/06/16 05:55: Absolute Band Neutrophils 0.0, Albumin 3.2L, Anion Gap 12.5, Anti-Nuclear Antibody (Hep-2) [Pending], Band Neutrophils % 0, Basophils # (Auto) , Basophils # (Manual) 0.0, Basophils % (Manual) 0, Basophils (%) (Auto) , Blood Morphology Comment Normal, Blood Urea Nitrogen 16, Calcium Level 8.2L, Carbon Dioxide Level 27, Chloride Level 103, Creatinine 0.70L, Differential Total Cells Counted 100, Eosinophils # 0.1, Eosinophils # (Auto) , Eosinophils % ( Manual) 1, Eosinophils (%) (Auto) , Estimat Glomerular Filtration Rate 129.7, Estimated GFR (Non- 107.2, Glucose Level 89, Hematocrit 40.60, Hemoglobin 13.8, Lymphocytes # 1.1, Lymphocytes # (Auto) , Lymphocytes % (Manual ) 15L, Lymphocytes (%) (Auto) , Mean Corpuscular Hemoglobin 31.1, Mean Corpuscular Hemoglobin Concent 34.0, Mean Corpuscular Volume 91, Mean Platelet Volume 10.6H, Methylmalonic Acid [Pending], Monocytes # 0.9, Monocytes # (Auto) , Monocytes % (Manual) 13H, Monocytes (%) (Auto) , Neutrophils # 5.4, Neutrophils # (Auto) , Neutrophils (%) (Auto) , Phosphorus Level 3.4, Platelet Count 172, Potassium Level 4.4, Red Blood Count 4.44L, Red Cell Distribution Width 13.3, Segmented Neutrophils % 71H, Sodium Level 138, Vitamin B12 Level 398 , White Blood Count 7.63 11/06/16 12:10: Ammonia < 8.7L 11/06/16 12:15: Ricky Test Pos, Arterial Blood Base Excess 0.0, Arterial Blood HCO3 25.6, Arterial Blood Oxygen Saturation 97, Arterial Blood Partial Pressure CO2 46H, Arterial Blood Partial Pressure O2 92, Arterial Blood Total CO2 27.0, Arterial Blood pH 7.36, Blood Gas Liter Flow 2.0, Blood Gas Puncture Site Right radial 11/06/16 12:35: Erythrocyte Sedimentation Rate 13 11/07/16 13:00: Alanine Aminotransferase (ALT/SGPT) 32, Albumin 3.6, Albumin/Globulin Ratio 1.285, Alkaline Phosphatase 73, Anion Gap 12.0, Aspartate Amino Transf (AST/SGOT ) 20, BUN/Creatinine Ratio 22H, Basophils # (Auto) 0.0, Basophils (%) (Auto) 0, Blood Urea Nitrogen 17, C-Reactive Protein 3.40H, Calcium Level 8.9, Calcium/ Ionized Calcium Ratio 4.2, Calculated Osmolality 270L, Carbon Dioxide Level 30H , Chloride Level 102, Creatinine 0.76L, Eosinophils # (Auto) 0.1, Eosinophils (% ) (Auto) 1, Estimat Glomerular Filtration Rate 118.0, Estimated GFR (Non- 97.5, Glucose Level 105, Hematocrit 45.50, Hemoglobin 15.5, Lymphocytes # (Auto) 1.2, Lymphocytes (%) (Auto) 14L, Mean Corpuscular Hemoglobin 31.6, Mean Corpuscular Hemoglobin Concent 34.1, Mean Corpuscular Volume 93, Mean Platelet Volume 10.5H, Monocytes # (Auto) 1.2, Monocytes (%) ( Auto) 15H, Neutrophils # (Auto) 5.6, Neutrophils (%) (Auto) 69H, Platelet Count 194, Potassium Level 4.6, Prothromb Time International Ratio 1.2, Prothrombin Time 13.3H, Red Blood Count 4.90, Red Cell Distribution Width 13.2, Sodium Level 139, Total Bilirubin 0.7, Total Protein 6.4, White Blood Count 8.13 11/08/16 13:00: Body Fl Herpes Simplex II DNA (PCR) [Pending], Body Fld Herpes Simplex I DNA ( PCR) [Pending], Body Fluid Source [Pending], CSF Appearance Clear, CSF Color Colorless, CSF Glucose 63, CSF RBC 0, CSF Total Protein 33, CSF Tube Number 3, CSF WBC 0, CSF West Nile Virus IgG Antibody [Pending], CSF West Nile Virus IgM Antibody [Pending], HSV Type Indeterminate (PCR) [Pending] Laboratory Results Past 24 Hrs 11/08/16 13:00: Body Fl Herpes Simplex II DNA (PCR) [Pending], Body Fld Herpes Simplex I DNA ( PCR) [Pending], Body Fluid Source [Pending], CSF Appearance Clear, CSF Color Colorless, CSF Glucose 63, CSF RBC 0, CSF Total Protein 33, CSF Tube Number 3, CSF WBC 0, CSF West Nile Virus IgG Antibody [Pending], CSF West Nile Virus IgM Antibody [Pending], HSV Type Indeterminate (PCR) [Pending] MICRO 11/08 CSF Gram stain PENDING 11/08 CSF Culture PENDING 11/08 CSF HSV PCR PENDING 11/08 CSF WNV PCR PENDING 11/05 Blood culture Negative to date EKG 11/06 Atrial fibrillation. No acute ST/T wave changes. 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 11/06/16 CT HEAD WO PROCEDURE: CT head without contrast. TECHNIQUE: Multiple contiguous axial images were obtained through the brain without the use of intravenous contrast. INDICATION: Altered mental status. Anisocoria. COMPARISON : None. FINDINGS: Generalized cerebral and cerebellar parenchymal volume loss. [id number] leukoaraiosis. Low-attenuation changes in the deep white matter of the frontal lobes, right greater than left, have the appearance of chronic infarcts but are age indeterminate. No CT findings convincing for acute infarct. Intracranial vascular and bilateral basal ganglia calcifications. No intracranial hemorrhage, mass effect, hydrocephalus, or extra-axial fluid collections. The visualized paranasal sinuses and mastoids are clear. Right scleral band. The orbits are otherwise unremarkable. Osseous structures are intact. IMPRESSION: 1. 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 However, acute infarction cannot entirely be excluded. 2. No intracranial hemorrhage. 3. Generalized parenchymal volume loss is appropriate for age. [id number] leukoaraiosis. 11/04/16 CHEST 1 VIEW, AP/PA ONLY* Clinical indication: Patient with cough. Exam : Portable chest x-ray upright view. Comparisons: Chest x-ray dated 07/06/2009. Findings: There is stable cardiomegaly with no significant pulmonary vascular congestion. Lungs are clear. There is no pleural effusion or pneumothorax. Bones show no significant acute abnormality as visualized. There is hypertrophic spurring of the right shoulder region. Impression: 1.: Stable cardiomegaly with no significant pulmonary vascular congestion. 2: Otherwise, the remainder of the chest shows no acute process. ASSESSMENT Nnamdi Chisholm is a 86 year old male admitted from ED 11/05 with malaise, weakness, falls at home, and dehydration, nausea, and vomiting. He also had fever at home. He was found to have elevated CRP of uncertain cause. ESR was normal. He has had mild hallucinations and has had mild disorientation and decline in executive function, gradual over the last two weeks but more so since 11/04. Differential includes viral or bacterial infection though source is uncertain based on admission workup. PLAN * Encephalopathy: Improved. Uncertain etiology but apparently gradual x 2 weeks , worse x 2 days prior to admit. Broad differential. No definitive cause thus far. ABG, ammonia both reassuring. CT head showed no acute changes. . LP 11/08 reassuring with normal protein, normal glucose, no cells. PCR for HSV and antibody for WNV as well as micro pending. * Malaise, Weakness: Improved. Uncertain cause. Dehydration noted. TSH normal. PT eval and treat. * Hallucinations/Delirium: Apparently was seeing some cats when in ED. 11/05, saw ants on the floor. Attributed to fever initially but persistent despite fever resolution. Got worse 11/06 and gave ziprasidone, haloperidol. B12 and methylmalonic acid pending. Workup as above. * Cognitive decline: Acute, seemingly. Etiology uncertain. Finally starting to improve as of 11/08. Workup as noted. B12 and methylmalonic acid pending. * Fever: Resolved. Noted prior to admit. Afebrile since this admit. Uncertain cause. Monitor closely for signs of infection. No definitive source of infection identified as yet. Acetaminophen. * Leukocytosis: Resolved. WBC 15.87 on admit with 16% bands. Resolved next morning to 10.62 and no bands. Further improved to 7.63 11/06. No definitive source of infection. Due to nausea/vomiting? Viral? Blood culture pending. Monitor closely for signs of infection. * Elevated CRP: Resolving. 14.20 on admit. Improved to 3.40 11/07. Uncertain cause. Monitored closely for signs of infection. Blood culture negative and WBC normalized. Not currently on antibiotic. * Cardiomegaly: NT-pro-BNP elevated. EKG showed no acute changes. Echo pending. * Dehydration: resolved * Nausea/Vomiting: Resolved. Viral illness? Had no diarrhea. Monitor signs/ symptoms. Ondansetron, promethazine. * Deconditioning, Falls at Home: PT/OT eval and treat. * Prophylaxis: Apixaban * Dispo: Inpatient from admit. He has shown improvement, ready for DC to [facility] for long-term, Echo not back yet, Few tests still pending including [place], HSV. Family aware of that. 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 discussed with Son. Will get f/u appt with PCP CHRONIC ISSUES * Atrial fibrillation: Apixaban, diltiazem * BPH: Finasteride * HTN: Lisinopril. * Tobacco abuse: Chews tobacco. Pt seen and examined with CREDIT CARD INTERVIEWER, agree with above. Pt is improved, but still somewhat confused. Will d/c to skilled care for further rehab. F/U with PCP. Discharge Disposition [facility] for long-term care Continued Medications: Apixaban (Eliquis) 2.5 Mg Tablet 2.5 MG PO BID TAB Diltiazem HCl (Diltiazem CD) 300 Mg Cap.er.24h 300 MG PO DAILY CAP Finasteride (Finasteride) 5 Mg Tablet 5 MG PO DAILY TAB Lisinopril (Lisinopril) 10 Mg Tablet 10 MG PO DAILY TAB Follow up Instructions Continue same medications Contact Dr Rutherford for questions or concerns You will go to [facility] for [facility] care. Copies to: End of Report . Neela Cherry APRN November 10, 2016 11:05 Tha Whitman MD November 10, 2016 20:49
--- NOTE | 2016-11-10 12:32 | NUR ---
Discharge instructions read and report called to [place]. Dismissal expected within the hour. The patient is currently up in bed with son at the bedside
--- NOTE | 2016-11-10 13:35 | NUR ---
Patient is escorted out of the building via wheelchair at this time. Care relinquished.
== END 2016-11-10 13:35 | DRG 72 ==
LOC: ED 19:23 → MED/SURG 22:47 → UNDOADMOB 22:47 → INTOOBSV 11-05 10:55 → OBSVTOIN 11-05 10:55 → MED/SURG 11-06 10:50 → OBSVTOIN 11-06 10:50 → MED/SURG 11-06 14:14
PROVIDERS: ADMIT Internal Medicine; ATTEND Internal Medicine
PROC: 009U3ZX Drainage of Spinal Canal, Percutaneous Approach, Diagnostic (ICD-10-PCS; principal; 2016-11-08)
DX: G93.40 Encephalopathy, unspecified (principal); E86.0 Dehydration; D72.829 Elevated white blood cell count, unspecified; R11.2 Nausea with vomiting, unspecified; I51.7 Cardiomegaly; I48.91 Unspecified atrial fibrillation; I10 Essential (primary) hypertension; Z72.0 Tobacco use; R53.81 Other malaise; R53.1 Weakness
CPT/HCPCS: 36415; 36600; 62270; 70450; 70544; 70553; 71010; 80048; 80053; 80069; 81003; 81015; 82140; 82607; 82803; 82945; 83605; 83735; 83880; 84157; 84443; 84484; 85025; 85610; 85652; 86140; 86788; 86789; 87040; 87070; 87205; 87486; 87581; 87633; 87798; 89050; 93005; 93306; 94760; 96360; 99283